=== PATIENT | female | born 1950 | race Caucasian/White ===

== ENCOUNTER 2017-06-29 10:59 | Emergency (ER) | payer MEDICARE ==
[2017-06-29 11:43] LABS: Appearance,Urine Clear (Clear); Bilirubin,Urine Negative (Negative); Glucose,Urine (UA) Negative (Negative); Ketones,Urine Negative (Negative); Leukocyte Esterase,Urine Negative (Negative); Nitrite,Urine Negative (Negative); PH, Urine 7.5 (5.0-8.0); Protein,Urine Negative (Negative); Specific Gravity,Urine 1.008 (1.001-1.035); UA Billing (MACRO vs. MICRO) CHEM
[2017-06-29] MEDS ORDERED: HYDROmorphone 1 MG/ML 1 ML SYRINGE IVP STA (12:30)
[2017-06-29] MEDS ORDERED: ONDANSETRON 4 MG/2 ML VIAL IVP STA (12:30)
[2017-06-29] MEDS ORDERED: SODIUM CHLORIDE 0.9% 1,000 ML IV STA (12:31)
--- NOTE | 2017-06-29 12:50 | ED ---
General Adult HPI - General Chief complaint: Abdominal Pain Stated complaint: Back Pain Time Seen by Provider: 06/29/17 12:07 Source: patient, RN notes reviewed Mode of arrival: ambulatory Limitations: no limitations - History of Present Illness Initial comments: Patient is 66-year-old female who presents emergency room today with a chief complaint of right-sided flank pain over the last 2 weeks. Patient does admit that she didn't follow-up the family doctor did have a CT of the abdomen and pelvis performed. She states that she still experiencing this pain. She does admit that she was be worse with movements at times. States tried a muscle relaxer no relief the symptoms. Also admits that her family doctor tried giving her some [place]. She did not feel like it did much for her own make her drowsy. Patient denies any other associated symptoms or complaints. Patient denies any recent fever, chills, shortness of breath, chest pain, abdominal pain , nausea or vomiting, numbness or tingling, dysuria or hematuria, constipation or diarrhea, headaches or visual changes, or any other complaints. - Related Data Home Medications Medication Instructions Recorded Confirmed Ammonium Lactate Cream [Lac-Hydrin 1 applic TOPICAL BID PRN 06/29/17 06/29/17 12% Cream] Baclofen [Lioresal] 10 mg PO TID PRN 06/29/17 06/29/17 Calcium Carbonate/Vitamin D3 1 tab PO DAILY 06/29/17 06/29/17 [Calcium 600-Vit D3 400 Caplet] Diltiazem HCl [Diltiazem 24Hr ER] 180 mg PO DAILY 06/29/17 06/29/17 Folic Acid 1 mg PO DAILY 06/29/17 06/29/17 Gabapentin [Neurontin] 300 mg PO TID 06/29/17 06/29/17 Meloxicam [Mobic] 7.5 mg PO Q12H 06/29/17 06/29/17 Methimazole [Tapazole] 5 mg PO DAILY 06/29/17 06/29/17 Methotrexate Sodium [Methotrexate] 25 mg PO MO 06/29/17 06/29/17 Metoprolol Tartrate [Lopressor] 50 mg PO DAILY 06/29/17 06/29/17 Multivitamins, Thera [Multivitamin 1 tab PO DAILY 06/29/17 06/29/17 (formulary)] Simvastatin [Zocor] 10 mg PO HS 06/29/17 06/29/17 Tolterodine [Detrol] 2 mg PO DAILY 06/29/17 06/29/17 traMADol HCL [Ultram] 50 mg PO BID PRN 06/29/17 06/29/17 Previous Rx's Medication Instructions Recorded Cyclobenzaprine [Flexeril] 10 mg PO TID #20 tab 06/29/17 Hydrocodone/Acetaminophen [[place] 1 each PO Q6HR PRN #20 tab 06/29/17 5-325] Allergies Allergy/AdvReac Type Severity Reaction Status Date / Time nortriptyline [From Pamelor] Allergy Unknown Verified 06/29/17 12:23 propranolol [From Inderal LA] Allergy Confusion Verified 06/29/17 12:23 Review of Systems ROS Statement: Those systems with pertinent positive or pertinent negative responses have been documented in the HPI. ROS Other: All systems not noted in ROS Statement are negative. Past Medical History Past Medical History: Hypertension, Rheumatoid Arthritis (RA), Thyroid Disorder Additional Past Medical History / Comment(s): migraines,HH, divertculosis History of Any Multi-Drug Resistant Organisms: None Reported Past Surgical History: Cholecystectomy, Hysterectomy, Joint Replacement, Orthopedic Surgery Additional Past Surgical History / Comment(s): lt knee, eye surgery, bladder sling Past Psychological History: No Psychological Hx Reported Smoking Status: Never smoker Past Alcohol Use History: None Reported Past Drug Use History: None Reported General Exam - General Exam Comments Initial Comments: General: The patient is awake and alert, in no distress, and does not appear acutely ill. Eye: Pupils are equal, round and reactive to light, extra-ocular movements are intact. No nystagmus. There is normal conjunctiva bilaterally. No signs of icterus. Ears, nose, mouth and throat: There are moist mucous membranes and no oral lesions. Neck: The neck is supple, there is no tenderness or JVD. Cardiovascular: There is a regular rate and rhythm. No murmur, rub or gallop is appreciated. Respiratory: Lungs are clear to auscultation, respirations are non-labored, breath sounds are equal. No wheezes, stridor, rales, or rhonchi. Gastrointestinal: Soft, non-distended, non-tender abdomen without masses or organomegaly noted. There is no rebound or guarding present. Mildly tender to the right CVA. Bowel sounds are unremarkable. Musculoskeletal: Normal ROM, no tenderness. Strength 5/5. Sensation intact. Pulses equal bilaterally 2+. Neurological: A&O x 3. CN II-XII intact, There are no obvious motor or sensory deficits. Coordination appears grossly intact. Speech is normal. Skin: Skin is warm and dry and no rashes or lesions are noted. Psychiatric: Cooperative, appropriate mood & affect, normal judgment. Limitations: no limitations Course Vital Signs 06/29/17 06/29/17 11:09 14:00 Temperature 98.3 F Pulse Rate 62 68 Respiratory 20 19 Rate Blood Pressure 160/74 154/72 O2 Sat by Pulse 99 99 Oximetry EKG Findings - EKG Comments: EKG Findings:: EKG performed at 1243: A 12-lead EKG was performed and interpreted by me as showing the following: Rate is 56, and rhythm is normal sinus. There are normal QRS complexes and normal R-wave progression. ST segments have no elevation or depression, and MD segments appear normal. Medical Decision Making - Medical Decision Making Case discussed in detail with attending physician Dr. Brady. Patient's CT she had performed on 06/21/2017 at [facility] was negative for any evidence of kidney stone. Did show rash or pills complications with the aorta and iliac vessels. Troponin normal appendix. No free air or bowel function. Posterior through Memo spine. Patient's labs been reviewed are unremarkable. Ultrasound shows no evidence of kidney stone. No other abnormality. Options of a CT with contrast were discussed with the patient. She does not feel some beneficial. Patient be reproduced with certain movements and on palpation. Was a small possibility of musculoskeletal type pain from her chronic back pain. Advised that we can try a different muscle relaxer for her symptoms. Will be started on Flexeril emergency room. Patient will be given a prescription for more. Also Lidoderm patch in the emergency room. She is advised follow-up family doctor over the next 2 days. Advised to discuss options of further evaluation and possible MRI. Patient denies return if symptoms increase worsen. - Lab Data Result diagrams: 06/29/17 12:35 06/29/17 12:35 Lab Results 06/29/17 06/29/17 06/29/17 Range/Units 11:20 12:35 12:35 WBC 7.7 (3.8-10.6) k/uL RBC 3.98 (3.80-5.40) m/uL Hgb 13.3 (11.4-16.0) gm/dL Hct 38.0 (34.0-46.0) % MCV 95.5 (80.0-100.0) fL MCH 33.3 (25.0-35.0) pg MCHC 34.9 (31.0-37.0) g/dL RDW 16.7 H (11.5-15.5) % Plt Count 308 (150-450) k/uL Neutrophils % 74 % Lymphocytes % 19 % Monocytes % 4 % Eosinophils % 1 % Basophils % 0 % Neutrophils # 5.7 (1.3-7.7) k/uL Lymphocytes # 1.5 (1.0-4.8) k/uL Monocytes # 0.3 (0-1.0) k/uL Eosinophils # 0.1 (0-0.7) k/uL Basophils # 0.0 (0-0.2) k/uL Anisocytosis Slight PT (9.0-12.0) sec INR (<1.2) APTT (22.0-30.0) sec Sodium (137-145) mmol/L Potassium (3.5-5.1) mmol/L Chloride (98-107) mmol/L Carbon Dioxide (22-30) mmol/L Anion Gap mmol/L BUN (7-17) mg/dL Creatinine (0.52-1.04) mg/dL Est GFR (MDRD) Af Amer (>60 ml/min/1.73 sqM) Est GFR (MDRD) Non-Af (>60 ml/min/1.73 sqM) Glucose (74-99) mg/dL Calcium (8.4-10.2) mg/dL Total Bilirubin (0.2-1.3) mg/dL AST (14-36) U/L ALT (9-52) U/L Alkaline Phosphatase (38-126) U/L Total Creatine Kinase 55 (30-135) U/L CK-MB (CK-2) 0.8 (0.0-2.4) ng/mL CK-MB (CK-2) Rel Index 1.5 Troponin I <0.012 (0.000-0.034) ng/mL Total Protein (6.3-8.2) g/dL Albumin (3.5-5.0) g/dL Amylase (30-110) U/L Lipase (23-300) U/L Urine Color Yellow Urine Appearance Clear (Clear) Urine pH 7.5 (5.0-8.0) Ur Specific Reading 1.008 (1.001-1.035) Urine Protein Negative (Negative) Urine Glucose (UA) Negative (Negative) Urine Ketones Negative (Negative) Urine Blood Negative (Negative) Urine Nitrite Negative (Negative) Urine Bilirubin Negative (Negative) Urine Urobilinogen 4.0 (<2.0) mg/dL Ur Leukocyte Esterase Negative (Negative) 06/29/17 06/29/17 06/29/17 Range/Units 12:35 12:35 12:35 WBC (3.8-10.6) k/uL RBC (3.80-5.40) m/uL Hgb (11.4-16.0) gm/dL Hct (34.0-46.0) % MCV (80.0-100.0) fL MCH (25.0-35.0) pg MCHC (31.0-37.0) g/dL RDW (11.5-15.5) % Plt Count (150-450) k/uL Neutrophils % % Lymphocytes % % Monocytes % % Eosinophils % % Basophils % % Neutrophils # (1.3-7.7) k/uL Lymphocytes # (1.0-4.8) k/uL Monocytes # (0-1.0) k/uL Eosinophils # (0-0.7) k/uL Basophils # (0-0.2) k/uL Anisocytosis PT 10.1 (9.0-12.0) sec INR 1.0 (<1.2) APTT 23.2 (22.0-30.0) sec Sodium 140 (137-145) mmol/L Potassium 3.9 (3.5-5.1) mmol/L Chloride 106 (98-107) mmol/L Carbon Dioxide 23 (22-30) mmol/L Anion Gap 11 mmol/L BUN 13 (7-17) mg/dL Creatinine 0.63 (0.52-1.04) mg/dL Est GFR (MDRD) Af Amer >60 (>60 ml/min/1.73 sqM) Est GFR (MDRD) Non-Af >60 (>60 ml/min/1.73 sqM) Glucose 106 H (74-99) mg/dL Calcium 9.9 (8.4-10.2) mg/dL Total Bilirubin 1.1 (0.2-1.3) mg/dL AST 25 (14-36) U/L ALT 33 (9-52) U/L Alkaline Phosphatase 134 H (38-126) U/L Total Creatine Kinase (30-135) U/L CK-MB (CK-2) (0.0-2.4) ng/mL CK-MB (CK-2) Rel Index Troponin I (0.000-0.034) ng/mL Total Protein 7.2 (6.3-8.2) g/dL Albumin 4.2 (3.5-5.0) g/dL Amylase <30 L (30-110) U/L Lipase 70 (23-300) U/L Urine Color Urine Appearance (Clear) Urine pH (5.0-8.0) Ur Specific Reading (1.001-1.035) Urine Protein (Negative) Urine Glucose (UA) (Negative) Urine Ketones (Negative) Urine Blood (Negative) Urine Nitrite (Negative) Urine Bilirubin (Negative) Urine Urobilinogen (<2.0) mg/dL Ur Leukocyte Esterase (Negative) Disposition Clinical Impression: Back pain Disposition: HOME SELF-CARE Condition: Good Instructions: Low Back Strain (ED) Additional Instructions: Please use medication as discussed. Please follow-up with family doctor in the next 2 days of symptoms have not improved. Please return to emergency room if the symptoms increase or worsen or for any other concerns. Prescriptions: Cyclobenzaprine [Flexeril] 10 mg PO TID #20 tab Hydrocodone/Acetaminophen [[place] 5-325] 1 each PO Q6HR PRN #20 tab PRN Reason: Pain Referrals: Blane Rosales MD [Primary Care Provider] - 1-2 days Time of Disposition: 14:52
[2017-06-29 13:04] LABS: Partial Thromboplastin Time 23.2 sec (22.0-30.0); Prothrombin Time 10.1 sec (9.0-12.0)
[2017-06-29 13:06] LABS: ALT 33 U/L (9-52); AST 25 U/L (14-36); Alkaline Phosphatase 134 U/L (38-126); Anion Gap 11 mmol/L; Blood Urea Nitrogen 13 mg/dL (7-17); Calcium 9.9 mg/dL (8.4-10.2); Carbon Dioxide 23 mmol/L (22-30); Chloride 106 mmol/L (98-107); Glucose 106 mg/dL (74-99); Non-African American GFR(MDRD) >60 (>60 ml/min/1.73 sqM); Potassium 3.9 mmol/L (3.5-5.1); Sodium 140 mmol/L (137-145); Total Bilirubin 1.1 mg/dL (0.2-1.3); Total Protein 7.2 g/dL (6.3-8.2)
[2017-06-29 13:11] LABS: Creatine Kinase 55 U/L (30-135)
[2017-06-29 13:13] LABS: Anisocytosis Slight; Basophils % (A) 0 %; CH 34.2; Eosinophils # (A) 0.1 k/uL (0-0.7); Eosinophils % (A) 1 %; HDW 3.13; HGB 13.3 gm/dL (11.4-16.0); Luc # (Auto) 0.09; Luc % (Auto) 1; Lymphocytes # (A) 1.5 k/uL (1.0-4.8); Lymphocytes % (A) 19 %; MCH 33.3 pg (25.0-35.0); MCHC 34.9 g/dL (31.0-37.0); MCV 95.5 fL (80.0-100.0); Mean Platelet Volume 7.7; Monocytes # (A) 0.3 k/uL (0-1.0); Monocytes % (A) 4 %; Neutrophils # (A) 5.7 k/uL (1.3-7.7); Neutrophils % (A) 74 %; RBC 3.98 m/uL (3.80-5.40); RDW 16.7 % (11.5-15.5); WBC 7.7 k/uL (3.8-10.6)
[2017-06-29 13:24] LABS: Creatine Kinase MB 0.8 ng/mL (0.0-2.4); Troponin I <0.012 ng/mL (0.000-0.034)
[2017-06-29 13:26] LABS: Amylase <30 U/L (30-110)
--- NOTE | 2017-06-29 14:12 | US ---
EXAMINATION TYPE: US kidneys/renal and bladder DATE OF EXAM: 06/29/2017 COMPARISON: NONE CLINICAL HISTORY: Pain; Right flank pain radiating to epigastric area x 3 weeks EXAM MEASUREMENTS: Right Kidney: 10.7 x 5.6 x 4.2 cm Left Kidney: 9.8 x 5.0 x 5.2 cm Post Void Residual Volume: not assessed on EC patient Right Kidney: No hydronephrosis or masses seen . No evidence for nephrolithiasis. Left Kidney: No hydronephrosis or masses seen . No evidence for nephrolithiasis. Bladder: not fully distended Bilateral Jets seen: No IMPRESSION: Examination is felt to be within normal limits.
[2017-06-29] MEDS ORDERED: HYDROcodone/APAP 5-325MG 1 EACH TAB PO STA (14:49)
[2017-06-29] MEDS ORDERED: CYCLOBENZAPRINE 10MG STARTER 3 TAB BTL PO STA (14:50)
[2017-06-29] MEDS ORDERED: LIDOCAINE 5% PATCH TOPICAL STA (14:56)
[2017-06-29 15:10] VITALS: BP 137/63; PULSE 60; RESP 18; TEMP 98.4
[2017-06-30] MEDS ORDERED: LIDOCAINE 5% PATCH TOPICAL SCH (09:00)
== END 2017-06-29 15:21 | disposition home or self-care (01) ==
LOC: EC 10:59
DX: M54.9 Dorsalgia, unspecified (principal); R10.9 Unspecified abdominal pain; I10 Essential (primary) hypertension; M06.9 Rheumatoid arthritis, unspecified; E07.9 Disorder of thyroid, unspecified; Z87.19 Personal history of other diseases of the digestive system; Z90.49 Acquired absence of other specified parts of digestive tract; Z88.8 Allergy status to other drugs, medicaments and biological substances; Z79.1 Long term (current) use of non-steroidal anti-inflammatories (NSAID); Z79.899 Other long term (current) drug therapy
CPT/HCPCS: 36415; 80053; 82150; 82550; 82553; 83690; 84484; 85025; 85610; 85730; 81003; 87086; 76770; 99285; 96374; 96375; 96361 ×2; J2405; J1170; 93005

== ENCOUNTER → 2019-10-02 | Outpatient (CLI) | payer MEDICARE ==
--- NOTE | 2019-10-03 11:02 | ECHOF ---
Referral Reason:A01.81 pre chemo MEASUREMENTS -------- HEIGHT: 170.2 cm WEIGHT: 113.4 kg BP: RVIDd: 2.8 cm (< 3.3) IVSd: 1.4 cm (0.6 - 1.1) LVIDd: 3.9 cm (3.9 - 5.3) LVPWd: 1.7 cm (0.6 - 1.1) IVSs: 1.7 cm LVIDs: 3.6 cm LVPWs: 1.3 cm LA Diam: 4.6 cm (2.7 - 3.8) LAESV Index (A-L): 29.76 ml/m Ao Diam: 3.0 cm (2.0 - 3.7) AV Cusp: 1.6 cm (1.5 - 2.6) LA Diam: 4.1 cm (2.7 - 3.8) MV EXCURSION: 19.089 mm (> 18.000) MV EF SLOPE: 47 mm/s (70 - 150) EPSS: 0.2 cm MV E Stef: 0.78 m/s MV DecT: 195 ms MV A Stef: 0.76 m/s MV E/A Ratio: 1.03 RAP: 5.00 mmHg RVSP: 31.23 mmHg FINDINGS -------- Sinus rhythm. This was a technically adequate study. The left ventricular size is normal. There is moderate concentric left ventricular hypertrophy. O verall left ventricular systolic function is low-normal with, an EF between 50 - 55 %. The right ventricle is normal in size. The left atrium is mildly dilated. LA is midly dilated 29-33ml/m2. The right atrial size is normal. There is mild aortic valve sclerosis. There is no evidence of aortic regurgitation. Mild mitral annular calcification present. Mild mitral regurgitation is present. Mild tricuspid regurgitation present. Right ventricular systolic pressure is normal at < 35 mmHg. There is no evidence of pulmonary hypertension. Trace/mild (physiologic) pulmonic regurgitation. The aortic root size is normal. Echo free space represents a pericardial fat pad. CONCLUSIONS -------- 1. Sinus rhythm. 2. This was a technically adequate study. 3. The left ventricular size is normal. 4. There is moderate concentric left ventricular hypertrophy. 5. Overall left ventricular systolic function is low-normal with, an EF between 50 - 55 %. 6. The right ventricle is normal in size. 7. The left atrium is mildly dilated. 8. LA is midly dilated 29-33ml/m2. 9. The right atrial size is normal. 10. There is mild aortic valve sclerosis. 11. Mild mitral annular calcification present. 12. Mild mitral regurgitation is present. 13. Mild tricuspid regurgitation present. 14. Right ventricular systolic pressure is normal at < 35 mmHg. 15. There is no evidence of pulmonary hypertension. 16. Trace/mild (physiologic) pulmonic regurgitation. 17. The aortic root size is normal. 18. Echo free space represents a pericardial fat pad. GLEASON GEAR GENERATOR: Cristy Sen RDCS
== END | disposition home or self-care (01) ==
LOC: RADECHMAIN 08:33
PROVIDERS: ATTEND Internal Medicine Hematology & Oncology
DX: Z01.818 Encounter for other preprocedural examination (principal); I08.3 Combined rheumatic disorders of mitral, aortic and tricuspid valves; Z88.8 Allergy status to other drugs, medicaments and biological substances
CPT/HCPCS: 93306

== ENCOUNTER 2019-10-06 08:27 | Inpatient (IN) | payer MEDICARE ==
[2019-10-06] MEDS ORDERED: ONDANSETRON 4 MG/2 ML VIAL IVP PRN (08:34)
[2019-10-06 10:04] LABS: ALT 9 U/L (4-34); AST 22 U/L (14-36); African American GFR (CKD) >90 (>60 ml/min/1.73 sqM); Albumin 3.9 g/dL (3.5-5.0); Alkaline Phosphatase 110 U/L (38-126); Anion Gap 8 mmol/L; Blood Urea Nitrogen 16 mg/dL (7-17); Calcium 9.3 mg/dL (8.4-10.2); Carbon Dioxide 26 mmol/L (22-30); Chloride 108 mmol/L (98-107); Glucose 118 mg/dL (74-99); Non-African American GFR(CKD) >90 (>60 ml/min/1.73 sqM); Phosphorus 3.8 mg/dL (2.5-4.5); Potassium 4.4 mmol/L (3.5-5.1); Sodium 142 mmol/L (137-145); Total Bilirubin 1.2 mg/dL (0.2-1.3); Total Protein 6.7 g/dL (6.3-8.2); Uric Acid 4.9 mg/dL (3.7-7.4)
[2019-10-06 10:23] LABS: HCT 23.4 % (34.0-46.0); HGB 8.2 gm/dL (11.4-16.0); MCH 40.4 pg (25.0-35.0); MCHC 34.9 g/dL (31.0-37.0); MCV 115.8 fL (80.0-100.0); Macrocytosis Marked; Mean Platelet Volume 8.7; RBC 2.02 m/uL (3.80-5.40); RDW 15.3 % (11.5-15.5)
[2019-10-06 10:26] LABS: WBC 1.3 k/uL (3.8-10.6)
[2019-10-06 10:29] LABS: Prothrombin Time 10.8 sec (9.0-12.0)
[2019-10-06] MEDS ORDERED: LIDOCAINE 1% INJ 10MG/ML (20 ML MDV) SQ ONE (10:45)
[2019-10-06] MEDS ORDERED: ACETAMINOPHEN TAB 325 MG TAB PO PRN (10:46)
--- NOTE | 2019-10-06 10:50 | P.HPIM ---
History of Present Illness H&P Date: 10/06/19 Chief Complaint: AML, induction with 7+3 Ms. Darling a very pleasant female pt of Dr. Hazel, with a known history of rheumatoid arthritis and hyperthyroidism. RA was diagnosed in 2016 and pt has been on methotrexate and methimazole, followed by Rheumatology. No jeremiah that CBC showed mildly low WBC intermittently but, in May WBC further dropped. The patient denied any acute illness or addition of new medications such as antibiotics prior to the drop in counts. Methotrexate was stopped around 06/05/19 and the patient referred to Dr. Hazel. Sedimentation rate increased, elevated MMA with normal B12 level, pt trialed on IM B12 and folate 2 mg/d however, no changes in CBC. 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 Her only symptom is decreased endurance. She is being admitted for 7+3 induction chemotherapy. On admit pt 14 point ROS is negative, no pain. Review of Systems 14 point ROS is negative except as stated in HPI Past Medical History Past Medical History: Cancer, Hypertension, Rheumatoid Arthritis (RA), Thyroid Disorder Additional Past Medical History / Comment(s): migraines,HH, divertculosis History of Any Multi-Drug Resistant Organisms: None Reported Past Surgical History: Cholecystectomy, Hysterectomy, Joint Replacement, Orthopedic Surgery Additional Past Surgical History / Comment(s): lt knee, eye surgery, bladder sling Past Psychological History: No Psychological Hx Reported Smoking Status: Never smoker Past Alcohol Use History: None Reported Past Drug Use History: None Reported - Past Family History Brother(s) Family Medical History: Cancer (lung) Sister(s) Family Medical History: Cancer (breast) Daughter(s) Family Medical History: Cancer (myeloma, melanoma) Medications and Allergies Home Medications Medication Instructions Recorded Confirmed Type Ammonium Lactate Cream [Lac-Hydrin 1 applic TOPICAL BID PRN 06/29/17 06/29/17 History 12% Cream] Baclofen [Lioresal] 10 mg PO TID PRN 06/29/17 06/29/17 History Calcium Carbonate/Vitamin D3 1 tab PO DAILY 06/29/17 06/29/17 History [Calcium 600-Vit D3 400 Caplet] Cyclobenzaprine [Flexeril] 10 mg PO TID #20 tab 06/29/17 Rx Diltiazem HCl [Diltiazem 24Hr ER] 180 mg PO DAILY 06/29/17 06/29/17 History Folic Acid 1 mg PO DAILY 06/29/17 06/29/17 History Gabapentin [Neurontin] 300 mg PO TID 06/29/17 06/29/17 History Hydrocodone/Acetaminophen [[place] 1 each PO Q6HR PRN #20 tab 06/29/17 Rx 5-325] Meloxicam [Mobic] 7.5 mg PO Q12H 06/29/17 06/29/17 History Methimazole [Tapazole] 5 mg PO DAILY 06/29/17 06/29/17 History Methotrexate Sodium [Methotrexate] 25 mg PO MO 06/29/17 06/29/17 History Metoprolol Tartrate [Lopressor] 50 mg PO DAILY 06/29/17 06/29/17 History Multivitamins, Thera [Multivitamin 1 tab PO DAILY 06/29/17 06/29/17 History (formulary)] Simvastatin [Zocor] 10 mg PO HS 06/29/17 06/29/17 History Tolterodine [Detrol] 2 mg PO DAILY 06/29/17 06/29/17 History traMADol HCL [Ultram] 50 mg PO BID PRN 06/29/17 06/29/17 History Allergies Allergy/AdvReac Type Severity Reaction Status Date / Time nortriptyline [From [place]amel[place]] Allergy Unknown Verified 06/29/17 12:23 propranolol [From Inderal LA] Allergy Confusion Verified 06/29/17 12:23 Physical Exam Vitals: Vital Signs Temp Pulse Resp BP Pulse Ox 10/06/19 08:50 97.8 F 64 17 122/58 95 Intake and Output 10/05/19 10/06/19 10/06/19 22:59 06:59 14:59 Other: Weight 113.852 kg - Constitutional General appearance: cooperative, no acute distress, obese - EENT Eyes: anicteric sclerae, EOMI ENT: hearing grossly normal, normal oropharynx - Neck Neck: no lymphadenopathy - Respiratory Respiratory: bilateral: CTA - Cardiovascular Rhythm: regular Heart sounds: normal: S1, S2 Abnormal Heart Sounds: no systolic murmur, no diastolic murmur, no rub, no S3 Gallop, no S4 Gallop, no click, no other leg Peripheral Edema: bilateral: None - Gastrointestinal General gastrointestinal: no absent bowel sounds, no decreased bowel sounds, no distended, no hepatomegaly, no hyperactive bowel sounds, normal bowel sounds, no organomegaly, no rigid, no scaphoid, soft, no splenomegaly, no tenderness, no umbilical hernia, no ventral hernia - Integumentary Integumentary: normal - Neurologic Neurologic: CNII-XII intact - Musculoskeletal Musculoskeletal: strength equal bilaterally - Psychiatric Psychiatric: A&O x's 3, appropriate affect, intact judgment & insight Results CBC & Chem 7: 10/06/19 09:49 10/06/19 09:40 Labs: Abnormal Lab Results - Last 24 Hours (Table) 10/06/19 10/06/19 Range/Units 09:40 09:49 WBC 1.3 L* (3.8-10.6) k/uL RBC 2.02 L (3.80-5.40) m/uL Hgb 8.2 L (11.4-16.0) gm/dL Hct 23.4 L (34.0-46.0) % MCV 115.8 H (80.0-100.0) fL MCH 40.4 H (25.0-35.0) pg Macrocytosis Marked A Chloride 108 H (98-107) mmol/L Glucose 118 H (74-99) mg/dL Thrombosis Risk Factor Assmnt - DVT/VTE Prophylaxis DVT/VTE Prophylaxis: Pharmacologic Prophylaxis ordered - Choose All That Apply Each Factor Represents 1 point: Obesity (BMI >25), Swollen legs (current) Each Risk Factor Represents 2 Points: Age 61-74 years Thrombosis Risk Factor Assessment Total Risk Factor Score: 4 Thrombosis Risk Factor Assessment Level: Moderate Risk Assessment and Plan (1) AML (acute myeloid leukemia) Narrative/Plan: Admit for induction chemotherapy with 7+3 regimen Supportive meds ordered Labs daily Ambulation encouraged Diet as tolerate GI prophylaxis/DVT proph (as soon as plt result) Daily f/u Current Visit: Yes Status: Acute Priority: High Code(s): C92.00 - ACUTE MYELOBLASTIC LEUKEMIA, NOT HAVING ACHIEVED REMISSION SNOMED Code(s): 01265734 (2) Rheumatoid arthritis Current Visit: No Status: Chronic Priority: Medium Code(s): M06.9 - RHEUMATOID ARTHRITIS, UNSPECIFIED SNOMED Code(s): 47843744 Plan: IM consulted for Medical Management Consult Dietitian for nutritional goals Consult PT for activity goals Doctor attests: I performed a history and physical examination of this patient, developed impression and plan of care, discussed with dictator. I agree with dictators note, documented as a scribe.
[2019-10-06] MEDS: SODIUM CHLORIDE 0.9% 1,000 ML IV SCH ×4 (11:40→23:36)
[2019-10-06] MEDS: SALT AND SODA MOUTHWASH 1,000 ML PO SCH ×4 (11:41→23:36)
[2019-10-06 12:03] LABS: Band Neutrophils % 7 %; Metamyelocytes # (M) 0.08 k/uL (0); Metamyelocytes % 6 %; Monocytes # (M) 0.07 k/uL (0-1.0); Myelocytes # (M) 0.03 k/uL (0); Myelocytes % 2 %; Neutrophils % (M) 11 %; Nucleated Red Blood Cells 0 /100 WBC (0-0); Total Cells Counted 100
[2019-10-06 12:11] LABS: Anisocytosis (M) Present; Platelet Count 76 k/uL (150-450)
[2019-10-06 12:12] LABS: Poikilocytosis (M) Present
[2019-10-06] MEDS: FAMOTIDINE 20 MG/2 ML VIAL IV SCH (12:30)
[2019-10-06] MEDS: DEXAMETHASONE SOD PHOSPHATE 10 MG/ML 1 ML VIAL IV SCH (12:31)
[2019-10-06] MEDS: ONDANSETRON 16 MG in SODIUM CHLORIDE 0.9% 50 ML IVPB SCH (12:31)
[2019-10-06] MEDS: DAUNORUBICIN IV SCH (13:28)
[2019-10-06] MEDS: CYTARABINE IV SCH (13:29)
[2019-10-06] MEDS: SODIUM CHLORIDE 0.9% IV SCH (13:29)
--- NOTE | 2019-10-06 14:28 | IR ---
EXAMINATION TYPE: IR cvc insert >=5 years DATE OF EXAM: 10/06/2019 COMPARISON: NONE CLINICAL HISTORY: Needs long-term intravenous access for therapy. PROCEDURE: After informed consent, the skin overlying the right basilic vein was localized with ultrasound and n oted to be compressible and patent. An ultrasound image was obtained and submitted on the patient's chart. The overlying skin was prepped and draped and Lidocaine was used for local anesthesia. A ski n cristiane was made with a scalpel. Access was gained to the vein under ultrasound guidance with a 21 ga uge needle and a 0.018 inch wire was advanced. Access site was dilated with Peel-Away sheath and cat heter tailored to the appropriate length and advanced such that the distal tip is at the cavoatrial j unction. Spot image was obtained verifying placement. Catheter was fixed to the skin and a sterile dressing was placed following hemostasis. Catheter was aspirated and flushed with saline. Patient w as discharged in stable condition without complication. Maximal barrier technique is utilized. Ultra sound image is documented on the chart. Ultrasound used with sterile technique. Fluoro time and fluoroscopic images submitted to document procedure: 21 intraoperative images documen t the procedure, 0.2 minutes fluoroscopy time IMPRESSION: STATUS POST ULTRASOUND AND FLUOROSCOPIC GUIDED PICC LINE PLACEMENT, READY FOR USE. THIS PROCEDURE WAS PERFORMED BY THE UNDERSIGNED.
[2019-10-06] MEDS ORDERED: TEMAZEPAM 15 MG CAP PO PRN (15:01)
[2019-10-06] MEDS ORDERED: ALPRAZolam 0.25 MG TAB PO PRN (15:01)
[2019-10-06] MEDS: DILTIAZEM CD 180 MG CAP.ER.24H PO SCH (15:29)
[2019-10-06] MEDS: METOPROLOL TARTRATE 50 MG TAB PO SCH (15:29)
[2019-10-06] MEDS: METHIMAZOLE 5 MG TAB PO SCH (15:30)
[2019-10-06] MEDS: CYCLOBENZAPRINE 5 MG TAB PO SCH ×2 (15:30→20:01)
[2019-10-06] MEDS: LORATADINE 10 MG TAB PO SCH (15:30)
[2019-10-06] MEDS: traMADol 50 MG TAB PO PRN ×2 (15:33→23:34)
[2019-10-06] MEDS: GABAPENTIN 300 MG CAP PO SCH ×2 (15:33→21:34)
[2019-10-06] MEDS: PRAVASTATIN SODIUM 20 MG TAB PO SCH (21:34)
[2019-10-06] MEDS: FOLIC ACID 1 MG TAB PO SCH (21:34)
[2019-10-06] MEDS: FAMOTIDINE 20 MG TAB PO SCH (21:34)
--- NOTE | 2019-10-06 22:14 | CONS ---
CONSULTATION DATE OF SERVICE: 10/06/2019 REASON FOR CONSULTATION: Advice regarding hypertension and hyperlipidemia requested by Dr. Hazel. HISTORY OF PRESENT ILLNESS: This 69-year-old woman with a past medical history of hypertension, hyperlipidemia, history of DJD, history of rheumatoid arthritis, history of breast surgery, cholecystectomy being followed by Dr. Rosales in the outpatient setting was admitted for induction chemotherapy with 7+ [address] Hazel. There is no history of fever, rigors. No history of headache, loss of consciousness and seizures. Patient has complaints of back pain which is ongoing at this time, rather chronic in nature. PAST MEDICAL HISTORY: History of GERD, hypertension, hyperlipidemia, history of DJD, history of rheumatoid arthritis, history of breast surgery and cholecystectomy. MEDICATION: Home medications are: 1. Tapazole 2.5 mg p.o. daily. 2. Flexeril 5-10 mg p.r.n. 3. Folic acid 1 mg daily. 4. Pravachol 20 mg q.h.s. 5. Levetiracetam 5 mg p.o. daily. 6. Ultram 50 mg b.i.d. p.r.n. 7. Multivitamins 1 p.o. daily. 8. Lopressor 50 mg p.o. daily. 9. Neurontin 300 mg p.o. t.i.d. 22884 mg p.o. daily. 11.Calcium 1 p.o. daily. ALLERGIES: PAMELOR AND PROPRANOLOL. FAMILY HISTORY: History of cancer, heart problems in the family. SOCIAL HISTORY: No history of smoking. No history of alcohol intake. REVIEW OF SYSTEMS: ENT: No diminished vision. No diminished hearing. CARDIOVASCULAR: No angina or palpitations. RESPIRATIONS: No cough or hemoptysis. GI as mentioned earlier. no dysuria. Nervous system: No numbness or weakness. ALLERGY/IMMUNOLOGY: No asthma or hayfever. MUSCULOSKELETAL as mentioned earlier. HEMATOLOGY/ONCOLOGY: No history of anemia. ENDOCRINE: No history of diabetes or hypothyroidism. CONSTITUTIONAL: As mentioned earlier. DERMATOLOGY: Negative. RHEUMATOLOGY: Negative. PSYCHIATRY: As mentioned earlier. PHYSICAL EXAMINATION: Alert and oriented times three. Pulse 57, blood pressure 117/52, respiration 14, temperature 98.5, pulse ox 97% on room air. HEENT: Conjunctivae normal. Oral mucosa moist. NECK is no jugular venous distention. No carotid bruit. No lymph node enlargement. Cardiovascular: S1, S2 muffled. No S3, no S4. RESPIRATORY: Breath sounds diminished in the bases. A few scattered rhonchi. No crackles. ABDOMEN: Soft, obese, nontender. No mass palpable. LEGS: No edema. No swelling. NERVOUS SYSTEM: Higher functions as mentioned earlier. Moves all four limbs. No focal deficits. LYMPHATICS: No lymph nodes palpable in the neck, axillae or groin. SKIN: No ulcer, no rash and no bleeding. JOINTS: No active deforming arthropathy. LABS: WBC 1.3, hemoglobin is 8.2. Other labs are noted. Glucose 118. ASSESSMENT: 1. Acute myeloid leukemia for induction chemotherapy with 7+ 3 regimen. 2. Pancytopenia secondary to acute myeloid leukemia. 3. History of hyperlipidemia. 4. Gastroesophageal reflux disease. 5. Hypertension. 6. Degenerative joint disease. 7. History of rheumatoid arthritis. 8. History of back pain, degenerative joint disease. 9. History of ankylosing spondylitis anterior back. 10.History of left breast cancer with lumpectomy and radiation. 11.History of migraines. 12.History of cholecystectomy. RECOMMENDATIONS AND DISCUSSION: In this 69-year-old woman who presented with multiple medical issues, we will monitor the patient closely. Continue the current medications, management and symptomatic treatment. Resume the home medications. Closely follow with Oncology. Induction chemotherapy per Oncology. DVT prophylaxis. The patient may be asked to follow with Dr. Talbot closely after discharge. Thank you Dr. Hazel for letting us participate in the care of this patient. MMDEEL / IJN: [id number] / RAJESH
[2019-10-07] MEDS: SALT AND SODA MOUTHWASH 1,000 ML PO SCH ×4 (05:56→20:32)
[2019-10-07] MEDS: SODIUM CHLORIDE 0.9% 1,000 ML IV SCH ×2 (07:00→16:34)
[2019-10-07 09:21] LABS: MCH 39.2 pg (25.0-35.0); MCHC 33.7 g/dL (31.0-37.0); MCV 116.4 fL (80.0-100.0); Macrocytosis Marked; Mean Platelet Volume 9.4; RBC 1.59 m/uL (3.80-5.40); RDW 15.4 % (11.5-15.5)
[2019-10-07 09:33] LABS: HGB 6.2 gm/dL (11.4-16.0); WBC 0.7 k/uL (3.8-10.6)
[2019-10-07 09:34] LABS: HCT 18.5 % (34.0-46.0); Platelet Count 50 k/uL (150-450)
[2019-10-07 09:36] LABS: ALT 7 U/L (4-34); AST 16 U/L (14-36); African American GFR (CKD) >90 (>60 ml/min/1.73 sqM); Albumin 2.8 g/dL (3.5-5.0); Alkaline Phosphatase 84 U/L (38-126); Anion Gap 2 mmol/L; Blood Urea Nitrogen 11 mg/dL (7-17); Carbon Dioxide 22 mmol/L (22-30); Chloride 114 mmol/L (98-107); Glucose 124 mg/dL (74-99); Non-African American GFR(CKD) >90 (>60 ml/min/1.73 sqM); Phosphorus 3.3 mg/dL (2.5-4.5); Potassium 3.7 mmol/L (3.5-5.1); Sodium 138 mmol/L (137-145); Total Bilirubin 0.9 mg/dL (0.2-1.3); Total Protein 5.2 g/dL (6.3-8.2)
[2019-10-07] MEDS: HYDROcodone/APAP 5-325MG 1 EACH TAB PO PRN (09:40)
[2019-10-07] MEDS: FOLIC ACID 1 MG TAB PO SCH ×2 (09:41→20:32)
[2019-10-07] MEDS: DILTIAZEM CD 180 MG CAP.ER.24H PO SCH (09:41)
[2019-10-07] MEDS: CYCLOBENZAPRINE 5 MG TAB PO SCH ×3 (09:41→22:03)
[2019-10-07] MEDS: GABAPENTIN 300 MG CAP PO SCH ×3 (09:41→22:03)
[2019-10-07] MEDS: METHIMAZOLE 5 MG TAB PO SCH (09:43)
[2019-10-07] MEDS: LORATADINE 10 MG TAB PO SCH (09:48)
[2019-10-07] MEDS: PANTOPRAZOLE 40 MG TABLET PO SCH (09:48)
[2019-10-07] MEDS: CALCIUM CARB-VIT D 500MG-200UN 1 EACH TAB PO SCH (09:48)
[2019-10-07] MEDS: METOPROLOL TARTRATE 50 MG TAB PO SCH (09:53)
[2019-10-07] MEDS: MULTIVITAMINS, THERA 1 EACH TAB PO SCH (09:53)
[2019-10-07 10:51] LABS: Ovalocytes Present
--- NOTE | 2019-10-07 13:18 | P.PN ---
Subjective Progress Note Date: 10/07/19 Principal diagnosis: AML, 7+3 induction chemotherapy In f/u today pt c/o severe tiredness, was up much of the night with electrical problems in her room. She is visibly SOB, denies ADITYA, does have some central chest discomfort intermittently, she has ambulated to the bathroom without chest pain, no fever, oral irritation, appetite is ok, no nausea, vomiting, abd bloating or pain, acute changes in bowel or bladder habits. Objective - Vital Signs Vital signs: Vital Signs Temp 97.7 F 10/07/19 08:00 Pulse 80 10/07/19 08:00 Resp 18 10/07/19 08:00 BP 134/64 10/07/19 08:00 Pulse Ox 100 10/07/19 08:00 Intake & Output 10/06/19 10/07/19 10/07/19 18:59 06:59 18:59 Intake Total 300 1636 Balance 300 1636 Weight 113.852 kg Intake: Intake, IV Titration 300 1636 Amount Cytarabine 440 mg In 136 Sodium Chloride 0.9% 250 ml @ 11.333 mls/hr IV Q24H [facility] Rx#:[id number] Ondansetron 16 mg In 50 Sodium Chloride 0.9% 50 ml @ 232 mls/hr IVPB DAILY@1300 [facility] Rx#: [id number] Sodium Chloride 0.9% 1, 250 1500 000 ml @ 125 mls/hr IV . Q8H [facility] Rx#:[id number] Other: Voiding Method Toilet Toilet Toilet - Constitutional General appearance: Present: average body habitus, cooperative, mild distress - EENT Eyes: Present: anicteric sclerae, EOMI ENT: Present: hearing grossly normal, normal oropharynx - Respiratory Respiratory: bilateral: CTA - Cardiovascular Rhythm: regular Heart sounds: normal: S1, S2 Abnormal Heart Sounds: Present: systolic murmur. Absent: diastolic murmur, rub, S3 Gallop, S4 Gallop, click, other - Peripheral edema leg Peripheral Edema: bilateral: Trace - Gastrointestinal General gastrointestinal: Present: normal bowel sounds, soft. Absent: absent bowel sounds, decreased bowel sounds, distended, hepatomegaly, hyperactive bowel sounds, organomegaly, rigid, scaphoid, splenomegaly, tenderness, umbilical hernia, ventral hernia - Integumentary Integumentary: Present: pale - Neurologic Neurologic: Present: CNII-XII intact - Musculoskeletal Musculoskeletal: Present: generalized weakness, strength equal bilaterally - Psychiatric Psychiatric: Present: A&O x's 3, appropriate affect, intact judgment & insight - Labs CBC & Chem 7: 10/07/19 08:50 10/07/19 08:50 Labs: Abnormal Lab Results - Last 24 Hours (Table) 10/07/19 10/07/19 Range/Units 08:50 08:50 WBC 0.7 L* (3.8-10.6) k/uL RBC 1.59 L (3.80-5.40) m/uL Hgb 6.2 L* D (11.4-16.0) gm/dL Hct 18.5 L* (34.0-46.0) % MCV 116.4 H (80.0-100.0) fL MCH 39.2 H (25.0-35.0) pg Plt Count 50 L (150-450) k/uL Macrocytosis Marked A Chloride 114 H (98-107) mmol/L Creatinine 0.44 L (0.52-1.04) mg/dL Glucose 124 H (74-99) mg/dL Calcium 8.0 L (8.4-10.2) mg/dL Total Protein 5.2 L (6.3-8.2) g/dL Albumin 2.8 L (3.5-5.0) g/dL Assessment and Plan (1) AML (acute myeloid leukemia) Narrative/Plan: Admit for induction chemotherapy with 7+3 regimen Supportive meds ordered Labs reviewed, 1 unit irradiated PRBCs today. Transfuse to keep Hgb 7 or greater. Transfuse to keep platelets 10k of greater, no transfusion today. No GCSF until confirmed remission Ambulation encouraged, as tolerated, safety Diet as tolerated GI prophylaxis/DVT proph (SCDs as plt count dropping, at 50k today) Daily f/u Current Visit: Yes Status: Acute Priority: High Code(s): C92.00 - ACUTE MYELOBLASTIC LEUKEMIA, NOT HAVING ACHIEVED REMISSION SNOMED Code(s): 15183830 (2) Rheumatoid arthritis Current Visit: No Status: Chronic Priority: Medium Code(s): M06.9 - RHEUM ATOID ARTHRITIS, UNSPECIFIED SNOMED Code(s): 99236773 Plan: CTA for ADITYA, chest heaviness IM consulted for Medical Management Consult Dietitian for nutritional goals Consult PT for activity goals
--- NOTE | 2019-10-07 13:54 | CT ---
EXAMINATION TYPE: CT angio chest DATE OF EXAM: 10/07/2019 COMPARISON: NONE HISTORY: Shortness of breath and chest pain. CT DLP: 532 mGycm. Automated Exposure Control for Dose Reduction was Utilized. CONTRAST: CTA scan of the thorax is performed with IV Contrast, patient injected with 100 mL of Isovue 370, pul monary embolism protocol. MIP Images are created on CT scanner and reviewed. FINDINGS: LUNGS: Some respiratory motion artifact angulation is present. Mild central groundglass opacity bilat erally. No suspicious focal consolidation. No pleural effusion or pneumothorax. No concerning pulmona ry nodules or masses. MEDIASTINUM: There is satisfactory enhancement of the pulmonary artery and its branches, there is no CT evidence for pulmonary embolism. Prominent right and left pulmonary artery suggestive product of u nderlying pulmonary artery hypertension. There are no greater than 1 cm hilar or mediastinal lymph n odes. No significant pericardial effusion is seen. Heart size mildly enlarged with moderate biatria l dilatation. Fairly severe three-vessel coronary artery calcification is seen which is noted marked underlying coronary artery disease. Heterogeneous thyroid with asymmetric right thyroid prominence. C annot exclude underlying goiter. OTHER: Right-sided PICC line terminates in SVC used for injection. Multilevel spurring of thoracic sp ine which is straightened on sagittal images. IMPRESSION: 1. No CT evidence for acute pulmonary embolism. 2. Mild cardiomegaly with suggestion of mild central alveolar edema, correlate for CHF exacerbation.
--- NOTE | 2019-10-07 15:01 | XR ---
EXAMINATION TYPE: XR chest 1V portable DATE OF EXAM: 10/07/2019 COMPARISON: CT of the chest dated 10/07/2019 HISTORY: Shortness of breath. TECHNIQUE: Single frontal view of the chest is obtained. FINDINGS: There is no focal air space opacity, pleural effusion, or pneumothorax seen. The cardiac silhouette size is upper limits of normal. Right-sided PICC line terminates in the distal superior ve na cava. Copious soft tissues partially obscure the lung bases. The osseous structures are intact. IMPRESSION: Mild central alveolar edema on the CT of 10/07/2019 is better seen on CT and not well-de monstrated radiographically. No acute process on radiograph.
[2019-10-07] MEDS: ONDANSETRON 16 MG in SODIUM CHLORIDE 0.9% 50 ML IVPB SCH (15:25)
[2019-10-07] MEDS: FAMOTIDINE 20 MG/2 ML VIAL IV SCH (15:26)
[2019-10-07] MEDS: DEXAMETHASONE SOD PHOSPHATE 10 MG/ML 1 ML VIAL IV SCH (15:26)
[2019-10-07] MEDS: DAUNORUBICIN IV SCH (16:18)
--- NOTE | 2019-10-07 16:19 | PN ---
PROGRESS NOTE DATE OF SERVICE: 10/07/2019 This 69-year-old woman who was admitted with AML induction chemotherapy is not feeling well. Today the patient is being started on chemotherapy. The white count is 0.7, hemoglobin 6.2, platelets are 50. Hematology/Oncology is following the patient closely. The pulse ox is 100% on room air. A chest CTA was done which showed no CT evidence of an acute pulmonary embolism; mild cardiomegaly with some mild centrilobular edema was noted, to correlate for CHF exacerbation. Past medical history reviewed. REVIEW OF SYSTEMS: CARDIOVASCULAR SYSTEM: No angina, palpitations. RESPIRATORY SYSTEM: As mentioned earlier. GI: As mentioned earlier. : No dysuria or retention. NERVOUS SYSTEM: No numbness, weakness. CURRENT MEDICATIONS: Reviewed. They include: 1. Tylenol p.r.n. 2. Dupo 5 q.6 p.r.n. 3. Os-Remy with vitamin D. 4. Flexeril 5 mg p.o. t.i.d. 5. Cytarabine 440 mg daily. 6. Daunorubicin 130 mg IV daily. 7. Decadron. 8. Cardizem CD 180 mg daily. 9. Pepcid. 10.Folic acid. 11.Neurontin. 12.Tapazole. 13.Lopressor. 14.Multivitamins. 15.Zofran. 16.Protonix. 17.Pravachol. 18.Senna. 19.Restoril. 20.Ultram. Route of administration was noted. PHYSICAL EXAMINATION: Patient is alert, oriented x3. Pulse 90, blood pressure 129/87, respirations 16, temperature 97.9, pulse ox 100% on room air. HEENT: Conjunctivae pale. Oral mucosa moist. NECK: No jugular venous distention. No carotid bruit. No lymph node enlargement. CARDIOVASCULAR SYSTEM: S1, S2 muffled. No S3. No S4. RESPIRATORY SYSTEM: Breath sounds diminished at the bases. A few scattered rhonchi and crackles. Expiratory wheezing also present. ABDOMEN: Soft, non-tender. No mass palpable. LEGS: No edema. No swelling. NERVOUS SYSTEM: No focal deficit. LABS: WBC 0.7 and hemoglobin is 6.2. Sodium is 138, potassium 3.7. ASSESSMENT: 1. Acute myeloid leukemia for induction chemotherapy with 7+3 regimen. 2. Severe pancytopenia secondary to acute myeloid leukemia as well as chemotherapy. 3. Hyperlipidemia. 4. Rule out congestive heart failure, acute exacerbation. 5. Gastroesophageal reflux disease. 6. Hypertension. 7. Degenerative joint disease. 8. History of rheumatoid arthritis. 9. History of back pain, degenerative joint disease. 10.History of ankylosing spondylitis and anterior back. 11.History of left breast cancer with lumpectomy and radiation. 12.History of migraine. 13.History of cholecystectomy. RECOMMENDATIONS AND DISCUSSION: In this 69-year-old woman who presented with multiple complex medical issues, at this time I recommend to continue the current medications, continue with symptomatic treatment. Otherwise, repeat labs. I would also recommend a chest x-ray and also BNP to complete the workup. A 2D echo was done earlier last week, read by Dr. Varghese, showing ejection fraction about 50% to 55%. We will continue to monitor. Further recommendations to follow. Blood transfusion per Hematology/ Oncology. Further recommendations from Hematology/Oncology. MMODL / IJN: [id number] / MTDBerkley
[2019-10-07] MEDS: SODIUM CHLORIDE 0.9% IV SCH (16:25)
[2019-10-07] MEDS: CYTARABINE IV SCH (16:25)
[2019-10-07] MEDS ORDERED: FUROSEMIDE 10 MG/ML 2 ML VIAL IV ONE (16:32)
[2019-10-07] MEDS: traMADol 50 MG TAB PO PRN (16:38)
[2019-10-07] MEDS: FAMOTIDINE 20 MG TAB PO SCH (20:32)
[2019-10-07] MEDS: PRAVASTATIN SODIUM 20 MG TAB PO SCH (22:03)
[2019-10-08] MEDS: SALT AND SODA MOUTHWASH 1,000 ML PO SCH ×6 (00:06→23:55)
[2019-10-08] MEDS: HYDROcodone/APAP 5-325MG 1 EACH TAB PO PRN ×2 (04:39→22:11)
[2019-10-08] MEDS: SODIUM CHLORIDE 0.9% 1,000 ML IV SCH ×3 (07:27→20:09)
[2019-10-08] MEDS: METOPROLOL TARTRATE 50 MG TAB PO SCH (08:55)
[2019-10-08] MEDS: FOLIC ACID 1 MG TAB PO SCH ×2 (08:55→20:08)
[2019-10-08] MEDS: DILTIAZEM CD 180 MG CAP.ER.24H PO SCH (08:55)
[2019-10-08] MEDS: GABAPENTIN 300 MG CAP PO SCH ×3 (08:55→22:11)
[2019-10-08] MEDS: CYCLOBENZAPRINE 5 MG TAB PO SCH ×4 (08:55→20:08)
[2019-10-08] MEDS: PANTOPRAZOLE 40 MG TABLET PO SCH (08:55)
[2019-10-08] MEDS: LORATADINE 10 MG TAB PO SCH (08:55)
[2019-10-08] MEDS: MULTIVITAMINS, THERA 1 EACH TAB PO SCH (08:56)
[2019-10-08] MEDS: METHIMAZOLE 5 MG TAB PO SCH (08:56)
[2019-10-08] MEDS: CALCIUM CARB-VIT D 500MG-200UN 1 EACH TAB PO SCH (08:56)
[2019-10-08 09:22] LABS: Anisocytosis Slight; HCT 24.2 % (34.0-46.0); MCH 38.2 pg (25.0-35.0); MCHC 34.1 g/dL (31.0-37.0); MCV 112.1 fL (80.0-100.0); Macrocytosis Marked; Mean Platelet Volume 9.4; RBC 2.16 m/uL (3.80-5.40); RDW 19.4 % (11.5-15.5)
[2019-10-08 09:30] LABS: WBC 0.6 k/uL (3.8-10.6)
[2019-10-08 09:34] LABS: HGB 8.2 gm/dL (11.4-16.0); Platelet Count 54 k/uL (150-450)
[2019-10-08 09:36] LABS: ALT 10 U/L (4-34); AST 24 U/L (14-36); African American GFR (CKD) >90 (>60 ml/min/1.73 sqM); Albumin 3.7 g/dL (3.5-5.0); Alkaline Phosphatase 91 U/L (38-126); Anion Gap 8 mmol/L; Blood Urea Nitrogen 19 mg/dL (7-17); Calcium 9.3 mg/dL (8.4-10.2); Carbon Dioxide 23 mmol/L (22-30); Chloride 110 mmol/L (98-107); Glucose 204 mg/dL (74-99); Non-African American GFR(CKD) >90 (>60 ml/min/1.73 sqM); Phosphorus 3.8 mg/dL (2.5-4.5); Potassium 3.9 mmol/L (3.5-5.1); Sodium 141 mmol/L (137-145); Total Bilirubin 0.8 mg/dL (0.2-1.3); Total Protein 6.3 g/dL (6.3-8.2); Uric Acid 5.3 mg/dL (3.7-7.4)
[2019-10-08 10:40] LABS: Poikilocytosis (M) Present
[2019-10-08] MEDS: DAUNORUBICIN IV SCH (14:19)
[2019-10-08] MEDS: ONDANSETRON 16 MG in SODIUM CHLORIDE 0.9% 50 ML IVPB SCH (14:41)
[2019-10-08] MEDS: DEXAMETHASONE SOD PHOSPHATE 10 MG/ML 1 ML VIAL IV SCH (14:41)
[2019-10-08] MEDS: FAMOTIDINE 20 MG/2 ML VIAL IV SCH (14:41)
[2019-10-08] MEDS ORDERED: FUROSEMIDE 10 MG/ML 2 ML VIAL IV ONE (15:23)
--- NOTE | 2019-10-08 16:53 | PN ---
PROGRESS NOTE DATE OF SERVICE: 10/08/2019 This 69-year-old woman who was admitted with acute myeloid leukemia had induction chemotherapy. The patient also had severe pancytopenia and severe anemia. After transfusion hemoglobin is 8.6. Chest x-ray showed some CHF. BNP slightly elevated. Patient was given Lasix yesterday. No fever. No cough. The patient is feeling slightly better today. Past medical history reviewed. REVIEW OF SYSTEMS: CARDIOVASCULAR SYSTEM: As mentioned earlier. RESPIRATORY SYSTEM: As mentioned earlier. GI: No nausea, vomiting. : No dysuria or retention. NERVOUS SYSTEM: No numbness, weakness. CURRENT MEDICATIONS: Reviewed. They include: 1. Tylenol 650 q.6 p.r.n. 2. [place] 5 mg q.6 p.r.n. 3. Xanax 0.25 t.i.d. 4. Os-Remy with vitamin D. 5. Flexeril. 6. Cytarabine. 7. Cardizem CD. 8. Folic acid. 9. Tapazole. 10.Multivitamins. 11.Zofran. 12.Protonix. 13.Pravachol. 14.Ultram. 15.Restoril. PHYSICAL EXAMINATION: Patient is alert, oriented x3. Pulse is 86, blood pressure 131/62, respiration 18, temperature 97.7, pulse ox 99% on room air. HEENT: Conjunctivae normal. Oral mucosa moist. NECK: No jugular venous distention. No carotid bruit. No lymph node enlargement. CARDIOVASCULAR SYSTEM: S1, S2 muffled. No S3. No S4. RESPIRATORY SYSTEM: Breath sounds diminished at the bases. No rhonchi. No crackles. ABDOMEN: Soft, non-tender. No mass palpable. LEGS: No edema. No swelling. NERVOUS SYSTEM: Higher functions as mentioned earlier. Moves all 4 limbs. No focal motor or sensory deficit. LYMPHATICS: No lymph node palpable in neck, axillae or groin. SKIN: No ulcer, rash, bleeding. JOINTS: No active deforming arthropathy. LABS: WBC 0.6 and hemoglobin is 8.2, platelets are 54. ASSESSMENT: 1. Acute myeloid leukemia for induction chemotherapy with 7+3 regimen. 2. History of pancytopenia secondary to acute myeloid leukemia as well as chemotherapy. 3. Hyperlipidemia. 4. Possibly mild congestive heart failure, acute exacerbation, with acute on chronic diastolic dysfunction with normal ejection fraction. 5. Gastroesophageal reflux disease. 6. Hypertension. 7. Degenerative joint disease. 8. History of rheumatoid arthritis. 9. History of back pain, degenerative joint disease. 10.History of ankylosing spondylitis. 11.History of breast cancer with lumpectomy and radiation. 12.History of migraine. 13.History of cholecystectomy. RECOMMENDATIONS AND DISCUSSION: In this 69-year-old woman who presented with multiple complex medical issues, at this time we will continue the current medications, continue with symptomatic treatment. Otherwise at this time I would recommend a small dose of Lasix and continue to monitor the fluid and electrolytes balance. Otherwise, keep monitoring the white count. There is no evidence of infection or sepsis at this time. We will continue to monitor. The patient is able to ambulate. Chest x-ray personally reviewed by me. Guarded prognosis. Rest of the recommendations per Hematology/Oncology. Further recommendations to follow. MMODL / IJN: [id number] /
[2019-10-08] MEDS: SODIUM CHLORIDE 0.9% IV SCH (17:13)
[2019-10-08] MEDS: CYTARABINE IV SCH (17:13)
--- NOTE | 2019-10-08 18:57 | P.PN ---
Subjective Progress Note Date: 10/08/19 Principal diagnosis: AML, 7+3 induction chemotherapy In f/u today pt looks better then yesterday, breathing is more comfortable, she walked in the hallway, no fever, oral irritation, appetite is ok, no nausea, vomiting, abd bloating or pain, acute changes in bowel or bladder habits, pain or bleeding. Objective - Vital Signs Vital signs: Vital Signs Temp 97.9 F 10/08/19 16:00 Pulse 75 10/08/19 16:00 Resp 16 10/08/19 16:00 BP 143/65 10/08/19 16:00 Pulse Ox 98 10/08/19 16:00 Intake & Output 10/07/19 10/08/19 10/08/19 18:59 06:59 18:59 Intake Total 1200 1410 Balance 1200 1410 Weight 113.852 kg Intake: Intake, IV Titration 1200 1100 Amount Cytarabine 440 mg In 1200 Sodium Chloride 0.9% 250 ml @ 11.333 mls/hr IV Q24H [facility] Rx#:[id number] Sodium Chloride 0.9% 1, 1100 000 ml @ 100 mls/hr IV . Q10H [facility] Rx#:[id number] Blood Product 310 Rc Irr As1 Unit 310 [id number] Other: Voiding Method Toilet Toilet Toilet # Voids 2 2 - Constitutional General appearance: Present: cooperative, no acute distress, obese - EENT Eyes: Present: anicteric sclerae, EOMI ENT: Present: hearing grossly normal, normal oropharynx - Respiratory Respiratory: bilateral: CTA (improved in the bases compared to yesterday exam) - Cardiovascular Rhythm: regular Heart sounds: normal: S1, S2 Abnormal Heart Sounds: Absent: systolic murmur, diastolic murmur, rub, S3 Gallop, S4 Gallop, click, other - Peripheral edema leg Peripheral Edema: bilateral: Trace - Gastrointestinal General gastrointestinal: Present: normal bowel sounds, soft - Integumentary Integumentary: Present: pale - Neurologic Neurologic: Present: CNII-XII intact - Musculoskeletal Musculoskeletal: Present: strength equal bilaterally - Psychiatric Psychiatric Comment(s): has numerous c/o about her situation that are not in anyone's control Psychiatric: Present: A&O x's 3, intact judgment & insight - Labs CBC & Chem 7: 10/08/19 08:34 12/18/19 08:34 Labs: Abnormal Lab Results - Last 24 Hours (Table) 10/07/19 10/08/19 10/08/19 Range/Units 10:45 08:34 08:34 WBC 0.6 L* (3.8-10.6) k/uL RBC 2.16 L (3.80-5.40) m/uL Hgb 8.2 L D (11.4-16.0) gm/dL Hct 24.2 L (34.0-46.0) % MCV 112.1 H (80.0-100.0) fL MCH 38.2 H (25.0-35.0) pg RDW 19.4 H (11.5-15.5) % Plt Count 54 L (150-450) k/uL Macrocytosis Marked A Chloride 110 H (98-107) mmol/L BUN 19 H (7-17) mg/dL Glucose 204 H (74-99) mg/dL Crossmatch See Detail - Imaging and Cardiology Chest x-ray: report reviewed Assessment and Plan (1) AML (acute myeloid leukemia) Narrative/Plan: Admit for induction chemotherapy with 7+3 regimen Supportive meds ordered Labs reviewed, no transfusions today. Transfuse to keep Hgb 7 or greater. Transfuse to keep platelets 10k of greater. No GCSF until confirmed remission. Antifungal, antiviral, antibiotic started prophylactically Ambulation encouraged, as tolerated, safety Diet as tolerated GI prophylaxis/DVT proph with SCDs due to flux plt count Daily f/u Current Visit: Yes Status: Acute Priority: High Code(s): C92.00 - ACUTE MYELOBLASTIC LEUKEMIA, NOT HAVING ACHIEVED REMISSION SNOMED Code(s): 40298592 (2) Rheumatoid arthritis Current Visit: No Status: Chronic Priority: Medium Code(s): M06.9 - RHEUMATOID ARTHRITIS, UNSPECIFIED SNOMED Code(s): 04845158 Plan: CTA for ADITYA, chest heaviness-no PE. Gentle hydration IM consulted for Medical Management-following closely Consult Dietitian for nutritional goals Consult PT for activity goals
[2019-10-08] MEDS: LEVOFLOXACIN 500 MG TAB PO SCH (20:07)
[2019-10-08] MEDS: ACYCLOVIR 200 MG CAP PO SCH (20:07)
[2019-10-08] MEDS: FAMOTIDINE 20 MG TAB PO SCH (20:08)
[2019-10-08] MEDS: PRAVASTATIN SODIUM 20 MG TAB PO SCH (20:08)
[2019-10-09] MEDS: SALT AND SODA MOUTHWASH 1,000 ML PO SCH ×5 (06:02→23:43)
[2019-10-09] MEDS: SODIUM CHLORIDE 0.9% 1,000 ML IV SCH ×2 (06:02→16:42)
[2019-10-09 08:27] LABS: Anisocytosis Slight; HCT 22.8 % (34.0-46.0); HGB 7.8 gm/dL (11.4-16.0); MCH 38.6 pg (25.0-35.0); MCHC 34.2 g/dL (31.0-37.0); MCV 112.8 fL (80.0-100.0); Macrocytosis Marked; Mean Platelet Volume 8.9; RBC 2.02 m/uL (3.80-5.40); RDW 19.1 % (11.5-15.5)
[2019-10-09 08:39] LABS: WBC 0.4 k/uL (3.8-10.6)
[2019-10-09 08:40] LABS: Platelet Count 38 k/uL (150-450)
[2019-10-09 08:43] LABS: ALT 10 U/L (4-34); AST 21 U/L (14-36); African American GFR (CKD) >90 (>60 ml/min/1.73 sqM); Albumin 3.5 g/dL (3.5-5.0); Alkaline Phosphatase 82 U/L (38-126); Anion Gap 4 mmol/L; Blood Urea Nitrogen 22 mg/dL (7-17); Calcium 9.2 mg/dL (8.4-10.2); Carbon Dioxide 27 mmol/L (22-30); Chloride 111 mmol/L (98-107); Glucose 138 mg/dL (74-99); Non-African American GFR(CKD) >90 (>60 ml/min/1.73 sqM); Phosphorus 4.2 mg/dL (2.5-4.5); Potassium 3.9 mmol/L (3.5-5.1); Sodium 142 mmol/L (137-145); Total Bilirubin 0.6 mg/dL (0.2-1.3); Total Protein 6.1 g/dL (6.3-8.2)
[2019-10-09] MEDS: METOPROLOL TARTRATE 50 MG TAB PO SCH (09:05)
[2019-10-09] MEDS: LORATADINE 10 MG TAB PO SCH (09:05)
[2019-10-09] MEDS: ACYCLOVIR 200 MG CAP PO SCH ×2 (09:05→21:37)
[2019-10-09] MEDS: CALCIUM CARB-VIT D 500MG-200UN 1 EACH TAB PO SCH (09:05)
[2019-10-09] MEDS: DILTIAZEM CD 180 MG CAP.ER.24H PO SCH (09:05)
[2019-10-09] MEDS: MULTIVITAMINS, THERA 1 EACH TAB PO SCH (09:06)
[2019-10-09] MEDS: METHIMAZOLE 5 MG TAB PO SCH (09:06)
[2019-10-09] MEDS: CYCLOBENZAPRINE 5 MG TAB PO SCH ×3 (09:06→21:37)
[2019-10-09] MEDS: FLUCONAZOLE 100 MG TAB PO SCH (09:06)
[2019-10-09] MEDS: FOLIC ACID 1 MG TAB PO SCH ×2 (09:06→21:37)
[2019-10-09] MEDS: PANTOPRAZOLE 40 MG TABLET PO SCH (09:11)
[2019-10-09] MEDS: GABAPENTIN 300 MG CAP PO SCH ×3 (09:11→21:37)
[2019-10-09] MEDS: SENNOSIDES 8.6 MG TAB PO PRN (09:25)
--- NOTE | 2019-10-09 14:17 | P.PN ---
Subjective Progress Note Date: 10/09/19 Principal diagnosis: This is a 69-year-old female was recently admitted by oncology for induction chemotherapy for acute myeloid leukemia. Patient states that her breathing is much better today and diuresed well. She states she was up to the bathroom many times after receiving IV Lasix yesterday. Patient also states that she has been up walking the hallways to increase her activity. Patient continues to have some lower extremity swelling and has been elevating her legs while at rest. Patient denies any chest pain, shortness of breath, or palpitations. Patient has been afebrile. Patient denies any nausea or vomiting and has been tolerating diet. Objective - Vital Signs Vital signs: Vital Signs Temp 98.3 F 10/09/19 11:53 Pulse 73 10/09/19 11:53 Resp 18 10/09/19 11:53 BP 155/66 10/09/19 11:53 Pulse Ox 98 10/09/19 11:53 Intake & Output 10/08/19 10/09/19 10/09/19 18:59 06:59 18:59 Intake Total 890 Balance 890 Weight 113.852 kg Intake: Intake, IV Titration 300 Amount Sodium Chloride 0.9% 1, 300 000 ml @ 100 mls/hr IV . Q10H [facility] Rx#:[id number] Oral 590 Other: Voiding Method Toilet Toilet Toilet # Voids 2 3 - Exam Gen: This is a 69-year-old female sitting up in the chair with legs elevated and appears to be in no acute distress. HEENT: Head is atraumatic, normocephalic. Pupils equal, round. Sclerae is anicteric. NECK: Supple. No JVD. No lymphadenopathy. No thyromegaly. LUNGS: diminished breath sounds at the bases otherwise clear to auscultation with no wheezes or rhonchinoted. No intercostal retractions. HEART: cardio S1, S2 are present. Regular rate and rhythm. No murmur. ABDOMEN: Soft. obese.Bowel sounds are present. No masses. No tenderness. EXTREMITIES: mild lower extremity edemanoted. No calf tenderness. NEUROLOGICAL: Patient is awake, alert and oriented x3. Cranial nerves 2 through 12 are grossly intact. - Labs CBC & Chem 7: 10/09/19 07:42 10/09/19 07:42 Labs: Abnormal Lab Results - Last 24 Hours (Table) 10/09/19 10/09/19 Range/Units 07:42 07:42 WBC 0.4 L* (3.8-10.6) k/uL RBC 2.02 L (3.80-5.40) m/uL Hgb 7.8 L (11.4-16.0) gm/dL Hct 22.8 L (34.0-46.0) % MCV 112.8 H (80.0-100.0) fL MCH 38.6 H (25.0-35.0) pg RDW 19.1 H (11.5-15.5) % Plt Count 38 L (150-450) k/uL Macrocytosis Marked A Chloride 111 H (98-107) mmol/L BUN 22 H (7-17) mg/dL Glucose 138 H (74-99) mg/dL Total Protein 6.1 L (6.3-8.2) g/dL Assessment and Plan Assessment: acute myeloid leukemia for induction chemotherapy with 7+3 regimen History of pancytopenia secondary to acute myeloid leukemia as well as chemotherapy Hyperlipidemia Possibly mild congestive heart failure, acute exacerbation, with acute on chronic diastolic dysfunction with normal ejection fraction Gastroesophageal reflux disease Hypertension next line degenerative joint disease history of rheumatoid arthritis history of back pain, degenerative joint disease History of ankylosing spondylitis History of breast cancer with lumpectomy and radiation History of migraine history of cholecystectomy Recommendations and discussion: Recommend to continue current medications, management, and symptomatic treatment. Will continue to follow along closely with oncology. hemoglobin is 7.8, platelets are 38 and requiring no transfusions today. Will monitor vital signs and labs closely. discussed with the patient about continuing to elevate the legs while at rest and encouraged increasing activity and walking as tolerated. Further recommendations to follow.
--- NOTE | 2019-10-09 14:57 | P.PN ---
Subjective Principal diagnosis: Patient continues with 7+3 chemotherapy treatment for AML. She states her breathing has improved since Sunday. She reports no shortness of breath during ambulation or rest. She states she is eating and drinking without any concern. She denies nausea, vomiting, diarrhea, pain, or ADITYA. She in good spirits, and d oes not have any concerns at this time. Objective - Vital Signs Vital signs: Vital Signs Temp 98.3 F 10/09/19 11:53 Pulse 73 10/09/19 11:53 Resp 18 10/09/19 11:53 BP 155/66 10/09/19 11:53 Pulse Ox 98 10/09/19 11:53 Intake & Output 10/08/19 10/09/19 10/09/19 18:59 06:59 18:59 Intake Total 890 Balance 890 Weight 113.852 kg Intake: Intake, IV Titration 300 Amount Sodium Chloride 0.9% 1, 300 000 ml @ 100 mls/hr IV . Q10H [facility] Rx#:[id number] Oral 590 Other: Voiding Method Toilet Toilet Toilet # Voids 2 3 - Exam Patient speech is clear and precise. She is ambulating with steady gait, moving all 4 extremities. No skin rashes visible with hospital gown on. Posterior lung mosqueda are clear to auscultation. Normal sinus rhythm. Bowel sounds present. Trace edema bilaterally in lower extremities. - Constitutional General appearance: Present: cooperative, no acute distress - Neck Neck: Present: lymphadenopathy - Respiratory Respiratory: bilateral: CTA - Cardiovascular Rhythm: regular Heart sounds: normal: S1, S2 - Gastrointestinal General gastrointestinal: Present: absent bowel sounds, normal bowel sounds - Musculoskeletal Musculoskeletal: Present: gait normal - Psychiatric Psychiatric: Present: appropriate affect, intact judgment & insight - Labs CBC & Chem 7: 10/09/19 07:42 10/09/19 07:42 Labs: Abnormal Lab Results - Last 24 Hours (Table) 10/09/19 10/09/19 Range/Units 07:42 07:42 WBC 0.4 L* (3.8-10.6) k/uL RBC 2.02 L (3.80-5.40) m/uL Hgb 7.8 L (11.4-16.0) gm/dL Hct 22.8 L (34.0-46.0) % MCV 112.8 H (80.0-100.0) fL MCH 38.6 H (25.0-35.0) pg RDW 19.1 H (11.5-15.5) % Plt Count 38 L (150-450) k/uL Macrocytosis Marked A Chloride 111 H (98-107) mmol/L BUN 22 H (7-17) mg/dL Glucose 138 H (74-99) mg/dL Total Protein 6.1 L (6.3-8.2) g/dL Assessment and Plan (1) AML (acute myeloid leukemia) Narrative/Plan: Continue induction chemotherapy with 7+3 regimen Supportive meds ordered Labs reviewed, no transfusions today. Transfuse to keep Hgb 7 or greater. Transfuse to keep platelets 10k of greater. No GCSF until confirmed remission. Antifungal, antiviral, antibiotic started prophylactically Ambulation encouraged, as tolerated, safety Diet as tolerated GI prophylaxis/DVT proph with SCDs due to flux plt count Daily f/u Current Visit: Yes Status: Acute Priority: High Code(s): C92.00 - ACUTE MYELOBLASTIC LEUKEMIA, NOT HAVING ACHIEVED REMISSION SNOMED Code(s): 20802903 (2) Rheumatoid arthritis Current Visit: No Status: Chronic Priority: Medium Code(s): M06.9 - RHEUMATOID ARTHRITIS, UNSPECIFIED SNOMED Code(s): 63466758 Plan: CTA for ADITYA, chest heaviness-no PE. Gentle hydration IM consulted for Medical Management-following closely Consult Dietitian for nutritional goals Consult PT for activity goals
[2019-10-09] MEDS: DEXAMETHASONE SOD PHOSPHATE 10 MG/ML 1 ML VIAL IV SCH (16:43)
[2019-10-09] MEDS: FAMOTIDINE 20 MG/2 ML VIAL IV SCH (16:43)
[2019-10-09] MEDS: ONDANSETRON 16 MG in SODIUM CHLORIDE 0.9% 50 ML IVPB SCH (16:43)
[2019-10-09] MEDS: SODIUM CHLORIDE 0.9% IV SCH (17:55)
[2019-10-09] MEDS: CYTARABINE IV SCH (17:55)
[2019-10-09] MEDS: LEVOFLOXACIN 500 MG TAB PO SCH (18:04)
[2019-10-09] MEDS: FAMOTIDINE 20 MG TAB PO SCH (21:37)
[2019-10-09] MEDS: PRAVASTATIN SODIUM 20 MG TAB PO SCH (21:37)
[2019-10-09] MEDS: HYDROcodone/APAP 5-325MG 1 EACH TAB PO PRN (23:41)
[2019-10-10] MEDS: SODIUM CHLORIDE 0.9% 1,000 ML IV SCH ×3 (02:21→23:30)
[2019-10-10] MEDS: SALT AND SODA MOUTHWASH 1,000 ML PO SCH ×3 (09:19→21:43)
[2019-10-10] MEDS: DILTIAZEM CD 180 MG CAP.ER.24H PO SCH (09:19)
[2019-10-10] MEDS: GABAPENTIN 300 MG CAP PO SCH ×3 (09:20→21:43)
[2019-10-10] MEDS: PANTOPRAZOLE 40 MG TABLET PO SCH (09:20)
[2019-10-10] MEDS: CALCIUM CARB-VIT D 500MG-200UN 1 EACH TAB PO SCH (09:20)
[2019-10-10] MEDS: ACYCLOVIR 200 MG CAP PO SCH ×2 (09:20→21:43)
[2019-10-10] MEDS: METHIMAZOLE 5 MG TAB PO SCH (09:20)
[2019-10-10] MEDS: LORATADINE 10 MG TAB PO SCH (09:20)
[2019-10-10] MEDS: FLUCONAZOLE 100 MG TAB PO SCH (09:20)
[2019-10-10] MEDS: FOLIC ACID 1 MG TAB PO SCH ×2 (09:20→21:43)
[2019-10-10] MEDS: MULTIVITAMINS, THERA 1 EACH TAB PO SCH (09:20)
[2019-10-10] MEDS: CYCLOBENZAPRINE 5 MG TAB PO SCH ×3 (09:21→21:30)
[2019-10-10] MEDS: METOPROLOL TARTRATE 50 MG TAB PO SCH (09:21)
[2019-10-10] MEDS: SENNOSIDES 8.6 MG TAB PO PRN (09:36)
[2019-10-10 09:46] LABS: Anisocytosis Slight; HCT 24.1 % (34.0-46.0); HGB 8.4 gm/dL (11.4-16.0); MCH 38.8 pg (25.0-35.0); MCHC 34.8 g/dL (31.0-37.0); MCV 111.6 fL (80.0-100.0); Macrocytosis Marked; Mean Platelet Volume 9.6; RBC 2.16 m/uL (3.80-5.40); RDW 17.9 % (11.5-15.5)
[2019-10-10 09:47] LABS: WBC 0.4 k/uL (3.8-10.6)
[2019-10-10 09:48] LABS: Platelet Count 34 k/uL (150-450)
[2019-10-10 10:10] LABS: AST 23 U/L (14-36); African American GFR (CKD) >90 (>60 ml/min/1.73 sqM); Albumin 3.6 g/dL (3.5-5.0); Alkaline Phosphatase 78 U/L (38-126); Anion Gap 10 mmol/L; Blood Urea Nitrogen 19 mg/dL (7-17); Calcium 9.4 mg/dL (8.4-10.2); Carbon Dioxide 20 mmol/L (22-30); Chloride 111 mmol/L (98-107); Glucose 200 mg/dL (74-99); Non-African American GFR(CKD) >90 (>60 ml/min/1.73 sqM); Phosphorus 3.4 mg/dL (2.5-4.5); Potassium 3.9 mmol/L (3.5-5.1); Sodium 141 mmol/L (137-145); Total Bilirubin 0.8 mg/dL (0.2-1.3); Total Protein 6.3 g/dL (6.3-8.2); Uric Acid 5.2 mg/dL (3.7-7.4)
[2019-10-10 10:17] LABS: ALT 16 U/L (4-34)
[2019-10-10 11:30] LABS: Ovalocytes Present; Poikilocytosis (M) Present
--- NOTE | 2019-10-10 15:49 | P.PN ---
Subjective Progress Note Date: 10/10/19 Principal diagnosis: This is a 69-year-old female was recently admitted by oncology for induction chemotherapy for acute myeloid leukemia. Patient states that her breathing is much better today and diuresed well. She states she was up to the bathroom many times after receiving IV Lasix yesterday. Patient also states that she has been up walking the hallways to increase her activity. Patient continues to have some lower extremity swelling and has been elevating her legs while at rest. Patient denies any chest pain, shortness of breath, or palpitations. Patient has been afebrile. Patient denies any nausea or vomiting and has been tolerating diet. 10/10/2019 Patient is sitting up in the chair and appears to be in no acute distress. Patient states that she is having some mild bloating and feeling slightly constipated. Patient was given a Senokot along with some prune juice. Patient's hemoglobin today was 8.4 and platelets were 34 requiring no transfusions today. Will continue to follow and monitor vital signs and labs closely. Bilateral lower extremity swelling has improved. No reports of chest pain or palpitations. Patient is afebrile. Patient denies nausea or vomiting and is tolerating diet. Objective - Vital Signs Vital signs: Vital Signs Temp 98.2 F 10/10/19 11:49 Pulse 64 10/10/19 11:49 Resp 16 10/10/19 11:49 BP 135/61 10/10/19 11:49 Pulse Ox 99 10/10/19 11:49 Intake & Output 10/09/19 10/10/19 10/10/19 18:59 06:59 18:59 Intake Total 1400 1002.17 890.64 Balance 1400 1002.17 890.64 Intake: Intake, IV Titration 800 1002.17 890.64 Amount Cytarabine 440 mg In 102.17 90.64 Sodium Chloride 0.9% 250 ml @ 11.333 mls/hr IV Q24H [facility] Rx#:[id number] Sodium Chloride 0.9% 1, 800 900 800 000 ml @ 100 mls/hr IV . Q10H [facility] Rx#:[id number] Oral 600 Other: Voiding Method Toilet Toilet Toilet # Voids 3 1 - Exam Gen: This is a 69-year-old female sitting up in the chair with legs elevated and appears to be in no acute distress. HEENT: Head is atraumatic, normocephalic. Pupils equal, round. Sclerae is anicteric. NECK: Supple. No JVD. No lymphadenopathy. No thyromegaly. LUNGS: diminished breath sounds at the bases otherwise clear to auscultation with no wheezes or rhonchi noted. No intercostal retractions. HEART: cardio S1, S2 are present. Regular rate and rhythm. No murmur. ABDOMEN: Soft. obese.Bowel sounds are present. No masses. No tenderness. EXTREMITIES: mild lower extremity edema noted. Improved No calf tenderness. NEUROLOGICAL: Patient is awake, alert and oriented x3. Cranial nerves 2 through 12 are grossly intact. - Labs CBC & Chem 7: 10/10/19 09:16 10/10/19 09:16 Labs: Abnormal Lab Results - Last 24 Hours (Table) 10/10/19 10/10/19 Range/Units 09:16 09:16 WBC 0.4 L* (3.8-10.6) k/uL RBC 2.16 L (3.80-5.40) m/uL Hgb 8.4 L (11.4-16.0) gm/dL Hct 24.1 L (34.0-46.0) % MCV 111.6 H (80.0-100.0) fL MCH 38.8 H (25.0-35.0) pg RDW 17.9 H (11.5-15.5) % Plt Count 34 L (150-450) k/uL Macrocytosis Marked A Chloride 111 H (98-107) mmol/L Carbon Dioxide 20 L (22-30) mmol/L BUN 19 H (7-17) mg/dL Creatinine 0.48 L (0.52-1.04) mg/dL Glucose 200 H (74-99) mg/dL Assessment and Plan Assessment: acute myeloid leukemia for induction chemotherapy with 7+3 regimen History of pancytopenia secondary to acute myeloid leukemia as well as chemotherapy Hyperlipidemia Possibly mild congestive heart failure, acute exacerbation, with acute on chronic diastolic dysfunction with normal ejection fraction Gastroesophageal reflux disease Hypertension next line degenerative joint disease history of rheumatoid arthritis history of back pain, degenerative joint disease History of ankylosing spondylitis History of breast cancer with lumpectomy and radiation History of migraine history of cholecystectomy Recommendations and discussion: Recommend to continue current medications, management, and symptomatic treatment. Will continue to follow along closely with oncology. hemoglobin is 8.4, platelets are 34 and requiring no transfusions today. Will monitor vital signs and labs closely. Patient was given some Senokot along with prune juice she is having some mild bloating with slight constipation. Last bowel movement was Sunday. Further recommendations to follow.
[2019-10-10] MEDS: ONDANSETRON 16 MG in SODIUM CHLORIDE 0.9% 50 ML IVPB SCH (16:36)
[2019-10-10] MEDS: DEXAMETHASONE SOD PHOSPHATE 10 MG/ML 1 ML VIAL IV SCH (16:37)
[2019-10-10] MEDS: FAMOTIDINE 20 MG/2 ML VIAL IV SCH (16:37)
[2019-10-10] MEDS: LEVOFLOXACIN 500 MG TAB PO SCH (16:38)
--- NOTE | 2019-10-10 16:38 | P.PN ---
Subjective Progress Note Date: 10/10/19 Principal diagnosis: Patient continues with 7+3 chemotherapy treatment for AML. Patient will beginning day 5 of 7 of 7+3 today. At this time she is stable, no fevers, oral irritation, difficulty swallowing, nausea, vomiting, shortness of breath, abdominal pain or discomfort, diarrhea, constipation, dysuria, hematuria, bleeding, petechiae, rash or pain, patient had multiple questions regarding her discharge and follow-up Objective - Vital Signs Vital signs: Vital Signs Temp 98.2 F 10/10/19 16:00 Pulse 60 10/10/19 16:00 Resp 16 10/10/19 16:00 BP 114/60 10/10/19 16:00 Pulse Ox 98 10/10/19 16:00 Intake & Output 10/09/19 10/10/19 10/10/19 18:59 06:59 18:59 Intake Total 1400 1002.17 890.64 Balance 1400 1002.17 890.64 Weight 122.668 kg Intake: Intake, IV Titration 800 1002.17 890.64 Amount Cytarabine 440 mg In 102.17 90.64 Sodium Chloride 0.9% 250 ml @ 11.333 mls/hr IV Q24H [facility] Rx#:[id number] Sodium Chloride 0.9% 1, 800 900 800 000 ml @ 100 mls/hr IV . Q10H [facility] Rx#:[id number] Oral 600 Other: Voiding Method Toilet Toilet Toilet # Voids 3 1 - Constitutional General appearance: Present: cooperative, morbidly obese, no acute distress - EENT Eyes: Present: anicteric sclerae, EOMI ENT: Present: hearing grossly normal, normal oropharynx - Respiratory Details: respirations even and unlabored Respiratory: bilateral: CTA - Cardiovascular Heart sounds: normal: S1, S2 - Peripheral edema leg Peripheral Edema: bilateral: Trace - Gastrointestinal General gastrointestinal: Present: normal bowel sounds, soft - Neurologic Neurologic: Present: CNII-XII intact - Musculoskeletal Musculoskeletal: Present: strength equal bilaterally - Psychiatric Psychiatric: Present: A&O x's 3, appropriate affect, intact judgment & insight - Labs CBC & Chem 7: 10/10/19 09:16 10/10/19 09:16 Labs: Abnormal Lab Results - Last 24 Hours (Table) 12/20/19 12/20/19 Range/Units 09:16 09:16 WBC 0.4 L* (3.8-10.6) k/uL RBC 2.16 L (3.80-5.40) m/uL Hgb 8.4 L (11.4-16.0) gm/dL Hct 24.1 L (34.0-46.0) % MCV 111.6 H (80.0-100.0) fL MCH 38.8 H (25.0-35.0) pg RDW 17.9 H (11.5-15.5) % Plt Count 34 L (150-450) k/uL Macrocytosis Marked A Chloride 111 H (98-107) mmol/L Carbon Dioxide 20 L (22-30) mmol/L BUN 19 H (7-17) mg/dL Creatinine 0.48 L (0.52-1.04) mg/dL Glucose 200 H (74-99) mg/dL Assessment and Plan (1) AML (acute myeloid leukemia) Narrative/Plan: Continue induction chemotherapy with 7+3 regimen Supportive meds ordered Labs reviewed, no transfusions today. Transfuse to keep Hgb 7 or greater. Transfuse to keep platelets 10k of greater. No GCSF until confirmed remission. Antifungal, antiviral, antibiotic started prophylactically Ambulation encouraged, as tolerated, safety Diet as tolerated GI prophylaxis/DVT proph with SCDs due to flux plt count Daily f/u Current Visit: Yes Status: Acute Priority: High Code(s): C92.00 - ACUTE MYELOBLASTIC LEUKEMIA, NOT HAVING ACHIEVED REMISSION SNOMED Code(s): 25345990 (2) Rheumatoid arthritis Current Visit: No Status: Chronic Priority: Medium Code(s): M06.9 - RHEUMATOID ARTHRITIS, UNSPECIFIED SNOMED Code(s): 39343750 Plan: Gentle hydration IM consulted for Medical Management-following closely Consult Dietitian for nutritional goals Consult PT for activity goals CBC three times a week on discharge BM Bx for 2-3 weeks after completion of treatment, further treatment recommendations after confirmed remission Anticipate discharge Sunday
[2019-10-10] MEDS: SODIUM CHLORIDE 0.9% IV SCH ×2 (17:27→17:32)
[2019-10-10] MEDS: CYTARABINE IV SCH ×2 (17:27→17:32)
[2019-10-10] MEDS: FAMOTIDINE 20 MG TAB PO SCH (21:43)
[2019-10-10] MEDS: PRAVASTATIN SODIUM 20 MG TAB PO SCH (21:43)
[2019-10-10] MEDS: HYDROcodone/APAP 5-325MG 1 EACH TAB PO PRN (23:30)
[2019-10-11] MEDS: SALT AND SODA MOUTHWASH 1,000 ML PO SCH ×6 (01:15→23:32)
[2019-10-11] MEDS: GABAPENTIN 300 MG CAP PO SCH ×3 (08:18→20:57)
[2019-10-11] MEDS: DILTIAZEM CD 180 MG CAP.ER.24H PO SCH (08:19)
[2019-10-11] MEDS: LEVOFLOXACIN 500 MG TAB PO SCH (08:19)
[2019-10-11] MEDS: PANTOPRAZOLE 40 MG TABLET PO SCH (08:20)
[2019-10-11] MEDS: METOPROLOL TARTRATE 50 MG TAB PO SCH (08:20)
[2019-10-11] MEDS: LORATADINE 10 MG TAB PO SCH (08:20)
[2019-10-11] MEDS: FLUCONAZOLE 100 MG TAB PO SCH (08:20)
[2019-10-11] MEDS: CYCLOBENZAPRINE 5 MG TAB PO SCH ×3 (08:20→20:57)
[2019-10-11] MEDS: FOLIC ACID 1 MG TAB PO SCH ×2 (08:20→20:58)
[2019-10-11] MEDS: METHIMAZOLE 5 MG TAB PO SCH (08:20)
[2019-10-11] MEDS: CALCIUM CARB-VIT D 500MG-200UN 1 EACH TAB PO SCH (08:20)
[2019-10-11] MEDS: HYDROcodone/APAP 5-325MG 1 EACH TAB PO PRN (08:20)
[2019-10-11] MEDS: MULTIVITAMINS, THERA 1 EACH TAB PO SCH (08:20)
[2019-10-11] MEDS: ACYCLOVIR 200 MG CAP PO SCH ×2 (08:51→20:57)
[2019-10-11 09:03] LABS: Anisocytosis Slight; HCT 21.6 % (34.0-46.0); HGB 7.4 gm/dL (11.4-16.0); MCH 38.8 pg (25.0-35.0); MCHC 34.3 g/dL (31.0-37.0); MCV 113.1 fL (80.0-100.0); Macrocytosis Marked; Mean Platelet Volume 10.5; RBC 1.91 m/uL (3.80-5.40); RDW 17.5 % (11.5-15.5)
[2019-10-11 09:13] LABS: Platelet Count 21 k/uL (150-450); WBC 0.2 k/uL (3.8-10.6)
[2019-10-11 09:45] LABS: ALT 14 U/L (4-34); AST 21 U/L (14-36); African American GFR (CKD) >90 (>60 ml/min/1.73 sqM); Albumin 3.3 g/dL (3.5-5.0); Alkaline Phosphatase 68 U/L (38-126); Anion Gap 7 mmol/L; Blood Urea Nitrogen 18 mg/dL (7-17); Calcium 9.1 mg/dL (8.4-10.2); Carbon Dioxide 22 mmol/L (22-30); Chloride 111 mmol/L (98-107); Glucose 181 mg/dL (74-99); Non-African American GFR(CKD) >90 (>60 ml/min/1.73 sqM); Potassium 4.2 mmol/L (3.5-5.1); Sodium 140 mmol/L (137-145); Total Bilirubin 0.8 mg/dL (0.2-1.3); Total Protein 5.7 g/dL (6.3-8.2); Uric Acid 4.5 mg/dL (3.7-7.4)
[2019-10-11] MEDS: SODIUM CHLORIDE 0.9% 1,000 ML IV SCH ×2 (14:12→19:48)
--- NOTE | 2019-10-11 15:00 | P.PN ---
Subjective 69-year-old female was recently admitted by oncology for induction chemotherapy for acute myeloid leukemia. Patient states that her breathing is much better today and diuresed well. She states she was up to the bathroom many times after receiving IV Lasix yesterday. Patient also states that she has been up walking the hallways to increase her activity. Patient continues to have some lower extremity swelling and has been elevating her legs while at rest. Patient denies any chest pain, shortness of breath, or palpitations. Patient has been afe brile. Patient denies any nausea or vomiting and has been tolerating diet. 10/10/2019 Patient is sitting up in the chair and appears to be in no acute distress. Patient states that she is having some mild bloating and feeling slightly constipated. Patient was given a Senokot along with some prune juice. Patient's hemoglobin today was 8.4 and platelets were 34 requiring no transfusions today. Will continue to follow and monitor vital signs and labs closely. Bilateral lower extremity swelling has improved. No reports of chest pain or palpitations. Patient is afebrile. Patient denies nausea or vomiting and is tolerating diet. 10/11/2019 No overnight events patient is doing well. Objective - Vital Signs Vital signs: Vital Signs Temp 98.1 F 10/11/19 12:00 Pulse 63 10/11/19 12:00 Resp 16 10/11/19 12:00 BP 121/60 10/11/19 12:00 Pulse Ox 98 10/11/19 12:00 Intake & Output 10/10/19 10/11/19 10/11/19 18:59 06:59 18:59 Intake Total 890.64 1291.97 888 Balance 890.64 1291.97 888 Weight 122.668 kg Intake: Intake, IV Titration 890.64 1001.97 888 Amount Cytarabine 440 mg In 90.64 101.97 88 Sodium Chloride 0.9% 250 ml @ 11.333 mls/hr IV Q24H [facility] Rx#:[id number] Sodium Chloride 0.9% 1, 800 900 800 000 ml @ 100 mls/hr IV . Q10H [facility] Rx#:[id number] Oral 290 Other: Voiding Method Toilet Toilet Toilet # Voids 2 # Bowel Movements 1 - Exam PHYSICAL EXAMINATION: GENERAL: The patient is alert and oriented x3, not in any acute distress. Well developed, well nourished. HEENT: Pupils are round and equally reacting to light. EOMI. No scleral icterus. No conjunctival pallor. Normocephalic, atraumatic. No pharyngeal erythema. No thyromegaly. CARDIOVASCULAR: S1 and S2 present. No murmurs, rubs, or gallops. PULMONARY: Chest is clear to auscultation, no wheezing or crackles. ABDOMEN: Soft, nontender, nondistended, normoactive bowel sounds. No palpable o rganomegaly. MUSCULOSKELETAL: No joint swelling or deformity. EXTREMITIES: No cyanosis, clubbing, or pedal edema. NEUROLOGICAL: Gross neurological examination did not reveal any focal deficits. SKIN: No rashes. - Labs CBC & Chem 7: 10/11/19 08:48 10/11/19 08:48 Labs: Abnormal Lab Results - Last 24 Hours (Table) 10/11/19 10/11/19 Range/Units 08:48 08:48 WBC 0.2 L* (3.8-10.6) k/uL RBC 1.91 L (3.80-5.40) m/uL Hgb 7.4 L (11.4-16.0) gm/dL Hct 21.6 L (34.0-46.0) % MCV 113.1 H (80.0-100.0) fL MCH 38.8 H (25.0-35.0) pg RDW 17.5 H (11.5-15.5) % Plt Count 21 L (150-450) k/uL Macrocytosis Marked A Chloride 111 H (98-107) mmol/L BUN 18 H (7-17) mg/dL Creatinine 0.47 L (0.52-1.04) mg/dL Glucose 181 H (74-99) mg/dL Total Protein 5.7 L (6.3-8.2) g/dL Albumin 3.3 L (3.5-5.0) g/dL Assessment and Plan Plan: acute myeloid leukemia for induction chemotherapy with 7+3 regimen History of pancytopenia secondary to acute myeloid leukemia as well as chemotherapy Hyperlipidemia Possibly mild congestive heart failure, acute exacerbation, with acute on chronic diastolic dysfunction with normal ejection fraction Gastroesophageal reflux disease Hypertension next line degenerative joint disease history of rheumatoid arthritis history of back pain, degenerative joint disease History of ankylosing spondylitis History of breast cancer with lumpectomy and radiation History of migraine history of cholecystectomy
[2019-10-11] MEDS: ONDANSETRON 16 MG in SODIUM CHLORIDE 0.9% 50 ML IVPB SCH (19:12)
[2019-10-11] MEDS: FAMOTIDINE 20 MG/2 ML VIAL IV SCH (19:12)
[2019-10-11] MEDS: DEXAMETHASONE SOD PHOSPHATE 10 MG/ML 1 ML VIAL IV SCH (19:12)
[2019-10-11] MEDS: SODIUM CHLORIDE 0.9% IV SCH (19:41)
[2019-10-11] MEDS: CYTARABINE IV SCH (19:41)
--- NOTE | 2019-10-11 20:05 | PN ---
PROGRESS NOTE October 11, 2019. CHIEF COMPLAINT: Tired. Jessica is seen today as a followup. She feels a little tired, but otherwise she is tolerating chemotherapy very well. She denies any nausea, vomiting, melena, hematochezia or hemoptysis. She has mild leg edema. She is ambulating well. CURRENT MEDICATION: Reviewed in the electronic medical record. PHYSICAL EXAMINATION: She is alert, oriented x3. She does not appear to be in distress. Vital signs: Temperature 98.1, afebrile, pulse 63, respirations 16, blood pressure 121/60. HEENT: Normocephalic, atraumatic. No icterus. NECK: Supple. CHEST: Equal expansion bilaterally. LUNGS: Clear to auscultation. HEART is regular rate and rhythm. ABDOMEN: Soft. No tenderness. EXTREMITIES: Revealed mild edema bilaterally in her lower extremities. LABORATORY DATA: WBC 0.6, hemoglobin 7.4, hematocrit is 21.6. The platelets are 21. Sodium 140, potassium 4.2, chloride 111, the CO2 is 22, BUN is 18, creatinine 0.4, AST and ALT are within normal limits. Uric acid is 4.5. IMPRESSION: 1. Acute myelogenous leukemia. The patient is on induction with 7+ 3 protocol. She is tolerating chemotherapy very well. 2. Pancytopenia related to above. PLAN/RECOMMENDATION: 1. Continue with induction therapy as scheduled. 2. Monitor blood count and supportive transfusion as needed. 3. Monitor electrolytes closely. 4. Continue supportive care. 5. Once induction therapy is completed, the patient could be discharged home. She will follow up in the office early next week for monitoring of blood count. Thank you very much. MMODL / IJN: [id number] /
[2019-10-11] MEDS: PRAVASTATIN SODIUM 20 MG TAB PO SCH (20:57)
[2019-10-11] MEDS: FAMOTIDINE 20 MG TAB PO SCH (20:58)
[2019-10-11] MEDS: traMADol 50 MG TAB PO PRN (22:28)
[2019-10-12] MEDS: SODIUM CHLORIDE 0.9% 1,000 ML IV SCH ×2 (05:55→19:41)
[2019-10-12] MEDS: SALT AND SODA MOUTHWASH 1,000 ML PO SCH ×5 (05:55→23:28)
[2019-10-12 07:25] LABS: Anisocytosis Slight; MCH 38.6 pg (25.0-35.0); MCHC 34.4 g/dL (31.0-37.0); MCV 112.1 fL (80.0-100.0); Macrocytosis Marked; Mean Platelet Volume 10.5; RBC 1.77 m/uL (3.80-5.40); RDW 16.7 % (11.5-15.5)
[2019-10-12 07:28] LABS: ALT 18 U/L (4-34); AST 20 U/L (14-36); African American GFR (CKD) >90 (>60 ml/min/1.73 sqM); Alkaline Phosphatase 65 U/L (38-126); Anion Gap 4 mmol/L; Blood Urea Nitrogen 16 mg/dL (7-17); Calcium 8.9 mg/dL (8.4-10.2); Carbon Dioxide 26 mmol/L (22-30); Chloride 109 mmol/L (98-107); Glucose 167 mg/dL (74-99); Non-African American GFR(CKD) >90 (>60 ml/min/1.73 sqM); Potassium 4.1 mmol/L (3.5-5.1); Sodium 139 mmol/L (137-145); Total Bilirubin 0.7 mg/dL (0.2-1.3); Total Protein 5.3 g/dL (6.3-8.2); Uric Acid 4.1 mg/dL (3.7-7.4)
[2019-10-12 07:37] LABS: WBC 0.1 k/uL (3.8-10.6)
[2019-10-12 07:38] LABS: HGB 6.8 gm/dL (11.4-16.0)
[2019-10-12 07:39] LABS: Platelet Count 13 k/uL (150-450)
[2019-10-12 07:40] LABS: HCT 19.8 % (34.0-46.0)
[2019-10-12] MEDS: CYCLOBENZAPRINE 5 MG TAB PO SCH ×3 (07:58→20:42)
[2019-10-12] MEDS: PANTOPRAZOLE 40 MG TABLET PO SCH (08:14)
[2019-10-12] MEDS: ACYCLOVIR 200 MG CAP PO SCH ×2 (08:14→20:42)
[2019-10-12] MEDS: METHIMAZOLE 5 MG TAB PO SCH (08:15)
[2019-10-12] MEDS: FOLIC ACID 1 MG TAB PO SCH ×2 (08:15→20:42)
[2019-10-12] MEDS: GABAPENTIN 300 MG CAP PO SCH ×3 (08:15→20:42)
[2019-10-12] MEDS: MULTIVITAMINS, THERA 1 EACH TAB PO SCH (08:15)
[2019-10-12] MEDS: FLUCONAZOLE 100 MG TAB PO SCH (08:15)
[2019-10-12] MEDS: CALCIUM CARB-VIT D 500MG-200UN 1 EACH TAB PO SCH (08:15)
[2019-10-12] MEDS: LORATADINE 10 MG TAB PO SCH (08:15)
[2019-10-12] MEDS: DILTIAZEM CD 180 MG CAP.ER.24H PO SCH (08:16)
[2019-10-12] MEDS: METOPROLOL TARTRATE 50 MG TAB PO SCH (08:16)
[2019-10-12 08:49] LABS: Poikilocytosis (M) Present
[2019-10-12 14:24] VITALS: BMI 47.7
[2019-10-12] MEDS: ONDANSETRON 16 MG in SODIUM CHLORIDE 0.9% 50 ML IVPB SCH (19:13)
[2019-10-12] MEDS: DEXAMETHASONE SOD PHOSPHATE 10 MG/ML 1 ML VIAL IV SCH (19:13)
[2019-10-12] MEDS: FAMOTIDINE 20 MG/2 ML VIAL IV SCH (19:14)
[2019-10-12] MEDS: SODIUM CHLORIDE 0.9% IV SCH (19:41)
[2019-10-12] MEDS: CYTARABINE IV SCH (19:41)
[2019-10-12] MEDS: LEVOFLOXACIN 500 MG TAB PO SCH (19:41)
[2019-10-12] MEDS: FAMOTIDINE 20 MG TAB PO SCH (20:42)
[2019-10-12] MEDS: PRAVASTATIN SODIUM 20 MG TAB PO SCH (20:42)
[2019-10-12] MEDS: traMADol 50 MG TAB PO PRN (23:31)
[2019-10-13] MEDS: SODIUM CHLORIDE 0.9% 1,000 ML IV SCH ×2 (01:10→13:17)
[2019-10-13 05:07] VITALS: RESP 16
[2019-10-13] MEDS: SALT AND SODA MOUTHWASH 1,000 ML PO SCH ×2 (05:35→13:18)
[2019-10-13 07:32] LABS: Anisocytosis Slight; HGB 7.7 gm/dL (11.4-16.0); MCH 37.8 pg (25.0-35.0); MCHC 34.8 g/dL (31.0-37.0); MCV 108.7 fL (80.0-100.0); Macrocytosis Marked; Mean Platelet Volume 8.5; RBC 2.03 m/uL (3.80-5.40); RDW 17.8 % (11.5-15.5)
[2019-10-13 07:44] LABS: WBC 0.1 k/uL (3.8-10.6)
[2019-10-13 07:45] LABS: Platelet Count 38 k/uL (150-450)
[2019-10-13] MEDS: FLUCONAZOLE 100 MG TAB PO SCH (07:51)
[2019-10-13] MEDS: DILTIAZEM CD 180 MG CAP.ER.24H PO SCH (07:51)
[2019-10-13] MEDS: METOPROLOL TARTRATE 50 MG TAB PO SCH (07:51)
[2019-10-13] MEDS: CALCIUM CARB-VIT D 500MG-200UN 1 EACH TAB PO SCH (07:51)
[2019-10-13] MEDS: ACYCLOVIR 200 MG CAP PO SCH (07:51)
[2019-10-13] MEDS: FOLIC ACID 1 MG TAB PO SCH (07:51)
[2019-10-13] MEDS: GABAPENTIN 300 MG CAP PO SCH (07:52)
[2019-10-13] MEDS: MULTIVITAMINS, THERA 1 EACH TAB PO SCH (07:52)
[2019-10-13] MEDS: PANTOPRAZOLE 40 MG TABLET PO SCH (07:52)
[2019-10-13 07:53] LABS: ALT 18 U/L (4-34); AST 20 U/L (14-36); African American GFR (CKD) >90 (>60 ml/min/1.73 sqM); Albumin 3.1 g/dL (3.5-5.0); Alkaline Phosphatase 63 U/L (38-126); Anion Gap 7 mmol/L; Blood Urea Nitrogen 16 mg/dL (7-17); Calcium 9.1 mg/dL (8.4-10.2); Carbon Dioxide 22 mmol/L (22-30); Chloride 110 mmol/L (98-107); Glucose 150 mg/dL (74-99); Non-African American GFR(CKD) >90 (>60 ml/min/1.73 sqM); Potassium 4.1 mmol/L (3.5-5.1); Sodium 139 mmol/L (137-145); Total Bilirubin 1.3 mg/dL (0.2-1.3); Total Protein 5.5 g/dL (6.3-8.2); Uric Acid 3.4 mg/dL (3.7-7.4)
[2019-10-13] MEDS: LORATADINE 10 MG TAB PO SCH (07:53)
[2019-10-13] MEDS: METHIMAZOLE 5 MG TAB PO SCH (07:53)
[2019-10-13] MEDS: CYCLOBENZAPRINE 5 MG TAB PO SCH ×2 (07:53→15:02)
[2019-10-13 08:04] LABS: Poikilocytosis (M) Present
[2019-10-13 11:26] VITALS: BP 134/87; PULSE 57; TEMP 97.9
--- NOTE | 2019-10-13 12:28 | P.PN ---
Subjective Progress Note Date: 10/13/19 Principal diagnosis: This is a 69-year-old female was recently admitted by oncology for induction chemotherapy for acute myeloid leukemia. Patient states that her breathing is much better today and diuresed well. She states she was up to the bathroom many times after receiving IV Lasix yesterday. Patient also states that she has been up walking the hallways to increase her activity. Patient continues to have some lower extremity swelling and has been elevating her legs while at rest. Patient denies any chest pain, shortness of breath, or palpitations. Patient has been afebrile. Patient denies any nausea or vomiting and has been tolerating diet. 10/10/2019 Patient is sitting up in the chair and appears to be in no acute distress. Patient states that she is having some mild bloating and feeling slightly constipated. Patient was given a Senokot along with some prune juice. Patient's hemoglobin today was 8.4 and platelets were 34 requiring no transfusions today. Will continue to follow and monitor vital signs and labs closely. Bilateral lower extremity swelling has improved. No reports of chest pain or palpitations. Patient is afebrile. Patient denies nausea or vomiting and is tolerating diet. 10/11/2019 No overnight events patient is doing well. 10/12/2019 No acute overnight issues patient is tolerating chemo well. Anticipating discharge on Sunday. 10/13/2019 Patient is sitting up in the chair and discussed that she will be discharged this evening after receiving chemotherapy. Patient was admitted for induction chemotherapy, 7+3 regimen and has tolerated well thus far. Patient's hemoglobin today was 7.7 and platelets are 38 requiring no transfusions today. No acute overnight issues. Patient continues to have some mild lower extremity swelling and states that they have improved and patient has been up and walking. Patient denies any chest pain, shortness of breath, or palpitations. Patient has been afebrile. Patient denies any nausea or vomiting and is tolerating diet. Patient had a bowel movement a few days ago. Will continue to follow along with oncology. Anticipating discharge this evening. Objective - Vital Signs Vital signs: Vital Signs Temp 97.9 F 10/13/19 11:25 Pulse 57 L 10/13/19 11:25 Resp 16 10/13/19 11:25 BP 134/87 10/13/19 11:25 Pulse Ox 100 10/13/19 11:25 Intake & Output 10/12/19 10/13/19 10/13/19 18:59 06:59 18:59 Intake Total 896 2218.8 Balance 896 2218.8 Weight 126 kg 127.5 kg Intake: Intake, IV Titration 896 1386.8 Amount Cytarabine 440 mg In 96 136.8 Sodium Chloride 0.9% 250 ml @ 11.333 mls/hr IV Q24H [facility] Rx#:[id number] Ondansetron 16 mg In 50 Sodium Chloride 0.9% 50 ml @ 232 mls/hr IVPB DAILY@1300 [facility] Rx#: [id number] Sodium Chloride 0.9% 1, 800 1200 000 ml @ 100 mls/hr IV . Q10H [facility] Rx#:[id number] Oral 237 Blood Product 0 595 Platelet Irr Pheresis 345 Acda Unit [id number] Rc Irr Cpda1 Unit 0 250 [id number] Other: Voiding Method Toilet Toilet Toilet - Exam Gen: This is a 69-year-old female sitting up in the chair with legs elevated and appears to be in no acute distress. HEENT: Head is atraumatic, normocephalic. Pupils equal, round. Sclerae is anicteric. NECK: Supple. No JVD. No lymphadenopathy. No thyromegaly. LUNGS: diminished breath sounds at the bases otherwise clear to auscultation with no wheezes or rhonchi noted. No intercostal retractions. HEART: cardio S1, S2 are present. Regular rate and rhythm. No murmur. ABDOMEN: Soft. obese.Bowel sounds are present. No masses. No tenderness. EXTREMITIES: mild lower extremity edema noted. Improved No calf tenderness. NEUROLOGICAL: Patient is awake, alert and oriented x3. Cranial nerves 2 through 12 are grossly intact. - Labs CBC & Chem 7: 10/13/19 06:37 10/13/19 06:37 Labs: Abnormal Lab Results - Last 24 Hours (Table) 10/12/19 10/13/19 10/13/19 Range/Units 09:57 06:37 06:37 WBC 0.1 L* (3.8-10.6) k/uL RBC 2.03 L (3.80-5.40) m/uL Hgb 7.7 L (11.4-16.0) gm/dL Hct 22.0 L (34.0-46.0) % MCV 108.7 H (80.0-100.0) fL MCH 37.8 H (25.0-35.0) pg RDW 17.8 H (11.5-15.5) % Plt Count 38 L D (150-450) k/uL Macrocytosis Marked A Chloride 110 H (98-107) mmol/L Creatinine 0.40 L (0.52-1.04) mg/dL Glucose 150 H (74-99) mg/dL Uric Acid 3.4 L (3.7-7.4) mg/dL Total Protein 5.5 L (6.3-8.2) g/dL Albumin 3.1 L (3.5-5.0) g/dL Crossmatch See Detail Assessment and Plan Assessment: acute myeloid leukemia for induction chemotherapy with 7+3 regimen History of pancytopenia secondary to acute myeloid leukemia as well as chemotherapy Hyperlipidemia Possibly mild congestive heart failure, acute exacerbation, with acute on chronic diastolic dysfunction with normal ejection fraction Gastroesophageal reflux disease Hypertension next line degenerative joint disease history of rheumatoid arthritis history of back pain, degenerative joint disease History of ankylosing spondylitis History of breast cancer with lumpectomy and radiation History of migraine history of cholecystectomy Recommendations and discussion: Recommend to continue current medications, management, and symptomatic treatment. Will continue to follow along closely with oncology. hemoglobin is 7.7, platelets are 38 and requiring no transfusions today. Anticipating discharge today after chemotherapy is infused. Further recommendations to follow.
--- NOTE | 2019-10-13 14:48 | P.DS ---
Providers Date of admission: 10/06/19 08:27 Expected date of discharge: 10/13/19 Attending physician: Aaron Hazel Consults: 10/06/19 08:43 Consult Physician Routine Consulting Provider: Ruth Delatorre Consult Reason/Comments: Medical management, AML Do you want consulting provider notified?: Yes Placement Type Exists?: Yes Primary care physician: Blane Rosales - Discharge Diagnosis(es) (1) AML (acute myeloid leukemia) Current Visit: Yes Status: Acute Priority: High (2) Rheumatoid arthritis Current Visit: No Status: Chronic Priority: Medium Hospital Course: Patient in for treatment of acute myeloid leukemia with 7+3 chemotherapy. During treatment patient developed some shortness of breath, CT scan of chest performed, patient was diruesed with IV lasix. Patient responded well and stated her breathing had improved. Patient hemoglobin was low during stay which required PRBC transfusions along platelet transfusion. Currently labs are improved stable Hgb at 7.7 and platelets at 38. Antifungal, antiviral, antibiotic started prophylactically and to be given at home. Assessment: 69 year old female in for acute myeloid leukemia being treated with 7+3 chemotherapy. Patient observed sitting in recliner, calm, in good spirits, cooperative. Patient AOX3, denies ADITYA, pain, N,V,D, or constipation. No rashes or bruising observed on exposed skin. Pt moving all extremities well and purposeful. Pt tongue pink, moist, midline. Patient has trace of swelling in lower extremities. Lung sounds clear to auscultation in posterior lung mosqueda. Heart sounds s1 and s2 present. Abdominal soft, non-tender, bowel sounds present in all four extremities. PICC line present to right upper extremity. Procedures: PICC line asserted in right upper extremity Patient Condition at Discharge: Fair Plan - Discharge Summary Discharge Rx Participant: No New Discharge Prescriptions: New Fluconazole [Diflucan] 100 mg PO DAILY #21 tablet Levofloxacin [Levaquin] 500 mg PO DAILY #21 tab Acyclovir [Zovirax] 400 mg PO BID #42 tab No Action Diltiazem HCl [Diltiazem 24Hr ER] 180 mg PO DAILY Methimazole [Tapazole] 2.5 mg PO DAILY Calcium Carbonate/Vitamin D3 [Calcium 600-Vit D3 400 Caplet] 1 tab PO DAILY traMADol HCL [Ultram] 50 mg PO BID PRN PRN Reason: Pain Multivitamins, Thera [Multivitamin (formulary)] 1 tab PO DAILY Metoprolol Tartrate [Lopressor] 50 mg PO DAILY Gabapentin [Neurontin] 300 mg PO TID Folic Acid 1 mg PO BID Pravastatin Sodium [Pravachol] 20 mg PO HS Levocetirizine Dihydrochloride 5 mg PO DAILY Cyclobenzaprine [Flexeril] 5 - 10 mg PO DAILY PRN PRN Reason: MUSCLE SPASMS Discharge Medication List Calcium Carbonate/Vitamin D3 [Calcium 600-Vit D3 400 Caplet] 1 tab PO DAILY 06/29/17 [History] Diltiazem HCl [Diltiazem 24Hr ER] 180 mg PO DAILY 06/29/17 [History] Folic Acid 1 mg PO BID 06/29/17 [History] Gabapentin [Neurontin] 300 mg PO TID 06/29/17 [History] Methimazole [Tapazole] 2.5 mg PO DAILY 06/29/17 [History] Metoprolol Tartrate [Lopressor] 50 mg PO DAILY 06/29/17 [History] Multivitamins, Thera [Multivitamin (formulary)] 1 tab PO DAILY 06/29/17 [History] traMADol HCL [Ultram] 50 mg PO BID PRN 06/29/17 [History] Cyclobenzaprine [Flexeril] 5 - 10 mg PO DAILY PRN 10/06/19 [History] Levocetirizine Dihydrochloride 5 mg PO DAILY 10/06/19 [History] Pravastatin Sodium [Pravachol] 20 mg PO HS 10/06/19 [History] Acyclovir [Zovirax] 400 mg PO BID #42 tab 10/09/19 [Rx] Fluconazole [Diflucan] 100 mg PO DAILY #21 tablet 10/09/19 [Rx] Levofloxacin [Levaquin] 500 mg PO DAILY #21 tab 10/09/19 [Rx] Follow up Appointment(s)/Referral(s): Aaron Hazel MD [STAFF PHYSICIAN] - 10/14/19 8:00 am Patient Instructions/Handouts: Acyclovir (By mouth), Fluconazole (By mouth), Le vofloxacin (By mouth), Acute Myeloid Leukemia (DC) Activity/Diet/Wound Care/Special Instructions: Activity as tolerated Diet as tolerated Temp monitoring. Fever >100.5F return to hospital 2-3 times a week CBC/lab draw Antiviral, antifungal and antibiotic sent to pt preferred pharmacy [facility] fluid intake Discharge Disposition: HOME SELF-CARE
== END 2019-10-13 18:20 | disposition home or self-care (01) | DRG 837 ==
LOC: 5NMEDONC 08:27
PROVIDERS: ADMIT Internal Medicine Hematology & Oncology; ATTEND Internal Medicine Hematology & Oncology
PROC: 02HV33Z Insertion of Infusion Device into Superior Vena Cava, Percutaneous Approach (ICD-10-PCS; 2019-10-06)
PROC: XW033B3 Introduction of Cytarabine and Daunorubicin Liposome Antineoplastic into Peripheral Vein, Percutaneous Approach, New Technology Group 3 (ICD-10-PCS; principal; 2019-10-06 13:45)
PROC: 30233N1 Transfusion of Nonautologous Red Blood Cells into Peripheral Vein, Percutaneous Approach (ICD-10-PCS; 2019-10-08)
PROC: 30243R1 Transfusion of Nonautologous Platelets into Central Vein, Percutaneous Approach (ICD-10-PCS; 2019-10-12)
DX: Z51.11 Encounter for antineoplastic chemotherapy (principal); D61.810 Antineoplastic chemotherapy induced pancytopenia; C92.00 Acute myeloblastic leukemia, not having achieved remission; I50.33 Acute on chronic diastolic (congestive) heart failure; Z68.42 Body mass index [BMI] 45.0-49.9, adult; E78.5 Hyperlipidemia, unspecified; I11.0 Hypertensive heart disease with heart failure; K21.9 Gastro-esophageal reflux disease without esophagitis; K59.00 Constipation, unspecified; M06.9 Rheumatoid arthritis, unspecified; M19.90 Unspecified osteoarthritis, unspecified site; T45.1X5A Adverse effect of antineoplastic and immunosuppressive drugs, initial encounter; G43.909 Migraine, unspecified, not intractable, without status migrainosus; M54.9 Dorsalgia, unspecified; E05.90 Thyrotoxicosis, unspecified without thyrotoxic crisis or storm; K44.9 Diaphragmatic hernia without obstruction or gangrene; K57.90 Diverticulosis of intestine, part unspecified, without perforation or abscess without bleeding; G89.29 Other chronic pain; E66.9 Obesity, unspecified; Z79.899 Other long term (current) drug therapy; Z90.710 Acquired absence of both cervix and uterus; Z90.49 Acquired absence of other specified parts of digestive tract; Z85.3 Personal history of malignant neoplasm of breast; Z92.3 Personal history of irradiation; Z88.8 Allergy status to other drugs, medicaments and biological substances; Z96.60 Presence of unspecified orthopedic joint implant; Z80.1 Family history of malignant neoplasm of trachea, bronchus and lung; Z80.3 Family history of malignant neoplasm of breast; Z80.8 Family history of malignant neoplasm of other organs or systems; Z80.7 Family history of other malignant neoplasms of lymphoid, hematopoietic and related tissues
CPT/HCPCS: 36573; 71045; 71275; 80053; 83880; 84100; 84484; 84550; 85025; 85610; 86850; 86870; 86880; 86900; 86901; 86920; 93005